=== PATIENT | male | born 1945 | race Two or more races ===

== ENCOUNTER → 2024-10-04 | Outpatient (BNVA) | payer MEDICARE, SELFPAY | END | disposition home or self-care (01) | PROVIDERS: PCP Nurse Practitioner Family; Referring Provider Nurse Practitioner Family; Visit Provider Nurse Practitioner Family | DX: E78.5 Hyperlipidemia, unspecified (principal); D64.9 Anemia, unspecified; I10 Essential (primary) hypertension | CPT/HCPCS: 99213 ==

== ENCOUNTER 2025-05-23 04:38 | Emergency (ER) | payer MEDICARE, MEDICAID, SELFPAY ==
[2025-05-23] VITALS (10 sets, daily range): BP systolic 102–136; BP diastolic 62–79; PULSE 81–120; RESP 17–26; TEMP 37–37.8; O2SAT 93–98; BMI 26.6
--- NOTE | 2025-05-23 05:14 | PD.EDRME ---
Rapid Medical Screening Exam [facility] [place] Arrival date/time: 05/23/25 04:38 79M with history of HTN, CKD, unknown cardic dysrhythmia (w/ pacemaker) presents to ED with 1 day of generalized weakness, BROWN, N/V, ab cramping, and non-bloody diarrhea. Patient denies URI symptoms. Chief Complaint: General Adult/Misc Complain Vital signs: Vital Signs Temperature 98.8 F 05/23/25 04:47 Pulse Rate 87 05/23/25 04:47 Respiratory Rate 17 05/23/25 04:47 Blood Pressure 102/66 05/23/25 04:47 Pulse Oximetry (%) 95 05/23/25 04:47 Oxygen Delivery Method Room Air 05/23/25 04:47
[2025-05-23 06:04] LABS: Collection Type, Urine Clean Catch
[2025-05-23 06:25] LABS: Lactate (Lactic Acid) 2.3 mMol/L (0.4-2.0)
[2025-05-23 06:34] LABS: Basophils # (Auto) 0.1 Thou/mm3 (0.0-0.2); Basophils % (Auto) 0 % (0-2.5); Eosinophils # (Auto) 0.0 Thou/mm3 (0.0-0.5); Eosinophils % (Auto) 0 % (0-10); Hematocrit 35.9 % (41.0-53.0); Hemoglobin 12.4 g/dL (13.5-16.0); Immature Granulocytes Auto 0.11 Thou/mm3 (0.00-0.00); Lymphocytes # (Auto) 1.4 Thou/mm3 (1.0-4.8); Lymphocytes % (Auto) 8 % (10-50); Mean Corpuscular HGB Conc 34.5 g/dl (31.0-37.0); Mean Corpuscular Hemoglobin 30.0 pg (25.0-35.0); Mean Corpuscular Volume 87 fL (80-100); Monocytes # (Auto) 0.5 Thou/mm3 (0.0-0.8); Monocytes % (Auto) 3 % (0-12); Neutrophils # (Auto) 14.4 Thou/mm3 (1.8-7.7); Neutrophils % (Auto) 87 % (37-80); Nucleated Red Blood Cell # 0.00 Thou/mm3 (0.00-0.00); Nucleated Red Blood Cell % 0 /100 WBC (0); Platelet Count 220 Thou/mm3 (140-440); RDW Standard Deviation 40.9 fL (35.1-43.9); Red Blood Count 4.14 Miln/mm3 (4.50-5.90); White Blood Count 16.4 Thou/mm3 (3.8-10.6)
[2025-05-23 07:18] LABS: Alanine Aminotransferase 13 U/L (10-49); Albumin, Serum 4.0 gm/dL (3.4-4.8); Albumin/Globulin Ratio 1.4 (1.2-2.2); Alkaline Phosphatase 100 U/L (46-116); Anion Gap 14 (7-16); Aspartate Amino Transferase 19 U/L (0-34); BUN/Creatinine Ratio 12 Ratio (12-20); Bilirubin,Total 0.7 mg/dL (0.3-1.2); Blood Urea Nitrogen 27 mg/dL (9-23); Calcium 8.9 mg/dL (8.3-10.6); Calcium (Corrected) 8.9 mg/dL (8.5-10.1); Carbon Dioxide 19.6 mMol/L (20.0-31.0); Chloride 105 mMol/L (98-107); Creatinine (Component) 2.2 mg/dL (0.6-1.3); Globulin 2.9 gm/dL (2.3-3.5); Glucose 122 mg/dL (74-106); Lipase 21 U/L (12-53); Osmolality,Calculated 283 (275-295); Potassium 4.0 mMol/L (3.4-5.1); Sodium 139 mMol/L (136-145); Total Protein 6.9 gm/dL (5.7-8.2); eGFR 30 See Note
--- NOTE | 2025-05-23 07:39 | EDNOTE_ITS ---
ED General RME/HPI General Chief complaint: General Adult/Misc Complain Stated complaint: ABD PAIN, N/VD, WEAK,HEADACHE Time Seen by Provider: 05/23/25 07:38 Arrival date/time: 05/23/25 04:38 Limitations: no limitations RME / HPI RME / HPI narrative: 05/23/25 04:38 79M with history of HTN, CKD, unknown cardic dysrhythmia (w/ pacemaker) presents to ED with 1 day of generalized weakness, BROWN, N/V, ab cramping, and non-bloody diarrhea. Patient denies URI symptoms. DR. MARTIN MAIN ED EVALUATION: 79 year old male presents to the Emergency Department with complaints of nausea, vomiting, diarrhea, and body aches onset yesterday morning when he woke up. He also mentions he has not stopped vomiting or having diarrhea and he is dehydrated and now has a headache as well. No cough, dysuria, or other symptoms at this time. PMHx: Hypertension, CKD. Social Hx: No tobacco, alcohol, or substance use. Related Data Home Medications ?Medication ?Instructions ?Recorded ?Confirmed niacin 500 mg tablet 500 mg PO QDAY 08/07/2409/14 verapamil 180 mg 24 hr 180 mg PO QAM 08/07/2410/04 capsule,extended release Previous Rx's ?Medication ?Instructions ?Recorded amiodarone 200 mg tablet 200 mg PO QDAY #30 tabs 08/13 04/05 aspirin 81 mg tablet,delayed 81 mg PO QDAY #90 tabs release levothyroxine 50 mcg capsule 50 mcg PO QDAY #90 caps 1 losartan 100 mg tablet 100 mg PO QDAY #90 tabs 08/13 04/05 omeprazole 20 mg capsule,delayed 20 mg PO QDAY #90 cap s 09/24/24 release ferrous gluconate 324 mg (37.5 mg 324 mg PO QDAY #90 t abs 10/04/24 iron) tablet propranolol 10 mg tablet 10 mg PO QDAY #90 tabs 10/04 sodium bicarbonate 650 mg tablet 650 mg PO QDAY #90 ta bs 10/15/24 Allergies Allergy/AdvReac Type Severity Reaction Status Date / Time No Known Allergies Allergy Verified 05/23/25 04:39 Review of Systems Review of Systems Systems Reviewed: All systems reviewed, normal except as documented Past Medical History Social History SMOKING STATUS: Never smoker SECOND HAND EXPOSURE: No SUBSTANCE USE: does not use ALCOHOL: Never ED Exam General Limitations: Present no limitations General appearance: Present alert and in no apparent distress Head Head exam: Present atraumatic, normocephalic and normal inspection Eye Eye exam: Present normal appearance, PERRL and EOMI ENT ENT exam: Present normal exam, normal oropharynx and mucous membranes dry Neck Neck exam: Present normal inspection, full ROM and trachea midline Chest Chest inspection: Present normal inspection and symmetric chest wall rise Respiratory Respiratory exam: Present normal lung sounds bilaterally Cardiovascular Cardiovascular exam: Present regular rate, normal rhythm and normal heart sounds Abdominal Exam Abdominal exam: Present soft and normal bowel sounds Extremities Exam Extremities exam: Present normal inspection and full ROM Back Exam Back exam: Present normal inspection and full ROM Neurological Exam Neurological exam: Present alert, oriented X3 and CN II-XII intact Psychiatric Psychiatric exam: Present normal affect and normal mood Skin Skin exam: Present warm, dry, intact and normal color Course Quality Measures none Orders Category Date Time Status Bedside COVID-19 Antigen Test NOW Care 05/23/25 05:14 Active Bedside Influenza A&B Antigen Test NOW Care 05/23/25 05:[address] abdomen pelvis wo con Stat Exams 05/23/25 07:43 Completed CXRP [XR chest 1V portable] Stat Exams 05/23/25 07:52 Completed Blood Culture (Lab) Stat Lab 05/23/25 10:13 Received CBC Stat Lab 05/23/25 06:10 Completed CMP [Comprehensive Metabolic Panel] Stat Lab 05/23/25 06:10 Completed COVID-19 Confirmatory PCR Stat Lab 05/23/25 09:09 Ordered Gastrointestinal Cult & GS Stat Lab 05/23/25 Ordered Influenza A & B Rapid Panel Stat Lab 05/23/25 09:08 Ordered Lactate (Lactic Acid) Stat Lab 05/23/25 06:10 Completed Lactic Acid, 3 HR Stat Lab 05/23/25 10:03 Completed Lipase Stat Lab 05/23/25 06:10 Completed PSA [Prostate Specific Antigen] Stat Lab 05/23/25 06:10 Completed Procalcitonin Stat Lab 05/23/25 06:10 Completed Urinalysis, C/S if Indicated Stat Lab 05/23/25 05:23 Completed Levofloxacin/D5w 500 mg Ivpb [Levaquin Ivpb] Med 05/23/25 09:54 Discontinued 500 mg in 100 ml IV X1 Sodium Chloride 0.9% 500 ml [Ns] 500 ml Med 05/23/25 09:55 Discontinued IV 999 mls/hr Vital Signs Vital signs: Vital Signs Temperature 98.8 F 05/23/25 04:47 Pulse Rate 87 05/23/25 04:47 Respiratory Rate 17 05/23/25 04:47 Blood Pressure 102/66 05/23/25 04:47 Pulse Oximetry (%) 95 05/23/25 04:47 Oxygen Delivery Method Room Air 05/23/25 04:47 Discharge Plan Plan Patient Disposition: HOME (Self Care) Patient condition on transfer: Stable Prescriptions/Referrals Prescriptions/Med Rec: No Action verapamil 180 mg capsule,ext rel. pellets 24 hr 180 mg PO QAM niacin 500 mg tablet 500 mg PO QDAY amiodarone 200 mg tablet 200 mg PO QDAY Qty: 30 0RF aspirin 81 mg tablet,delayed release (DR/EC) 81 mg PO QDAY Qty: 90 0RF levothyroxine 50 mcg capsule 50 mcg PO QDAY Qty: 90 0RF losartan 100 mg tablet 100 mg PO QDAY Qty: 90 0RF omeprazole 20 mg capsule,delayed release(DR/EC) 20 mg PO QDAY Qty: 90 0RF propranolol 10 mg tablet 10 mg PO QDAY Qty: 90 0RF ferrous gluconate 324 mg (37.5 mg iron) tablet 324 mg PO QDAY Qty: 90 0RF sodium bicarbonate 650 mg tablet 650 mg PO QDAY Qty: 90 0RF Referrals: Trevor Jones PA-C [Primary Care Provider] - In 1 week Problem List Clinical Impression: Gastroenteritis, Sepsis, Prostatitis Patient/Caregiver Discharge Instructions Discharge Activity: resume usual activities Education Materials: Sepsis, ED Gastroenteritis, Noninfectious, ED Prostatitis Print Language: Indonesian Stand Alone Forms: Jessica Award Info., Patient Portal Info Letter MDM Narrative [facility] hospital course: I, Chrissy Gates, am scribing for and in the presence of Dr. Taylor. Patient here for nausea, vomiting, diarrhea, body aches, and a headache. Likely gastroenteritis, sepsis, OBED, and dehydration. Plan to order labs, CT, IV fluids; no antibiotics for now. Also will order a sepsis work-up including CXR and COVID and flu swabs. Levaquin for 10 days, Zofran for nausea, Tylenol for fever, and follow up with PCP. Diagnoses with gastroenteritis, sepsis, and prostatitis. Clinical Information Provided by patient Medical Records Reviewed [facility] Meds/Rx Considered, not Ordered None Labs/Rad/Tests considered, not Ordered None Chronic Illness/Social Conditions Add or document further as needed: PMHx: Hypertension, CKD. Social Hx: No tobacco, alcohol, or substance use. EKG EKG not done Lab Interpretation Labs: see narrative above Imaging Radiology reports / interpretation(s): Procedure(s): CT abdomen pelvis wo [facility] Accession Number(s): [id number] cc: Lenny Taylor MD; Suhail Diaz MD; Trevor Jones PA-C~ Examination: CT abdomen and pelvis without contrast. Coronal 3-D reconstructions. Sagittal 2-D reconstructions. Date and time of exam:May 23, 2025 0814 hours INDICATIONS: Sepsis alert today with generalized abdominal pain and fevers CTDI: vol (mGy): 6.98 DLP: (mGycm): 381 Technique: Axial images of the abdomen have been obtained, 3 mm slice thickness Intravenous contrast material has not been administered. Low dose protocols were performed. One or more of the following dose reduction techniques were used; automated exposure control, adjustment of the mA and/or KV according to patient size, use of iterative reconstruction technique. Findings: No focal liver or splenic lesions Absent gallbladder No pancreatic or adrenal mass. Perinephric stranding, 14 mm posterior right renal cyst No renal or ureteral calculi, no hydronephrosis Aortic calcification no aneurysmal dilatation Minimal pericecal inflammatory change The entire colon shows wall thickening and inflammatory change Appendix is not diagnostically visualized No diverticulitis Contracted urinary bladder No significant prostatomegaly Advanced disc narrowing L5-S1 2002 IMPRESSION: Diffuse nonspecific colitis pattern, differential would include ulcerative colitis, Crohn's disease Dictated By: Suhail Diaz MD Procedure(s): XR chest 1V portable Accession Number(s): [id number] cc: Lenny Taylor MD; Suahil Diaz MD; Trevor Jones PA-C~ Examination: AP chest single view TECHNIQUE: AP portable upright chest single view Date and time: May 23, 2025 0749 hours INDICATIONS: Fever chest pain beginning today FINDINGS: Mildly large cardiac contour Moderate vascular congestion Suspicious for pneumonia right base IMPRESSION: Suspicious for early pneumonia right base Dictated By: Suhail Diaz MD Medication Administration(s) Medication Administration History Discontinued Medications Sodium Chloride (Ns) 500 mls @ 999 mls/hr IV .Q31M ONE Stop: 05/23/25 10:25 Last Admin: 05/23/25 10:39 Dose: 999 mls/hr Documented By: TAM Levofloxacin/Dextrose (Levaquin Ivpb) 500 mg in 100 mls @ 100 mls/hr IV X1 ONE Stop: 05/23/25 10:53 Last Admin: 05/23/25 10:35 Dose: 100 mls/hr Documented By: TAM Diagnosis Differential diagnosis: gastroenteritis, sepsis, OBED, and dehydration Most likely dx, and/or detailed dx discussion: Gastroenteritis Sepsis Prostatitis Dispositon Disposition: Discharge Home
--- NOTE | 2025-05-23 07:43 | XR_ITS ---
Examination: CT abdomen and pelvis without contrast. Coronal 3-D reconstructions. Sagittal 2-D reconstructions. Date and time of exam:May 23, 2025 0814 hours INDICATIONS: Sepsis alert today with generalized abdominal pain and fevers CTDI: vol (mGy): 6.98 DLP: (mGycm): 381 Technique: Axial images of the abdomen have been obtained, 3 mm slice thickness Intravenous contrast material has not been administered. Low dose protocols were performed. One or more of the following dose reduction techniques were used; automated exposure control, adjustment of the mA and/or KV according to patient size, use of iterative reconstruction technique. Findings: No focal liver or splenic lesions Absent gallbladder No pancreatic or adrenal mass. Perinephric stranding, 14 mm posterior right renal cyst No renal or ureteral calculi, no hydronephrosis Aortic calcification no aneurysmal dilatation Minimal pericecal inflammatory change The entire colon shows wall thickening and inflammatory change Appendix is not diagnostically visualized No diverticulitis Contracted urinary bladder No significant prostatomegaly Advanced disc narrowing L5-S1 2002 IMPRESSION: Diffuse nonspecific colitis pattern, differential would include ulcerative colitis, Crohn's disease
[2025-05-23 07:51] LABS: Procalcitonin 64.65 ng/ml (0.0-0.49)
--- NOTE | 2025-05-23 07:52 | XR_ITS ---
Examination: AP chest single view TECHNIQUE: AP portable upright chest single view Date and time: May 23, 2025 0749 hours INDICATIONS: Fever chest pain beginning today FINDINGS: Mildly large cardiac contour Moderate vascular congestion Suspicious for pneumonia right base IMPRESSION: Suspicious for early pneumonia right base
[2025-05-23 08:07] LABS: Bilirubin,Urine Negative (Negative); Blood,Urine Negative (Negative); Clarity,Urine Turbid (Clear/Hazy); Color,Urine Yellow (Lt Yel-Yel); Culture Indicated,Urine Not Indicated; Glucose, Urine Negative (Negative); Ketones,Urine Negative (Negative); Leukocyte Esterase,Urine Negative (Negative); Nitrite,Urine Negative (Negative); PH,Urine 5.5 (5.0-7.0); Protein,Urine 1+ (Neg - Trace); RBC,Urine 1 /hpf (0-3); Specific Gravity,Urine 1.024 (1.001-1.035); Squamous Epithelial Cell,Urine < 1 /hpf (0-5); Urobilinogen,Urine Negative mg/dL (0.0-1.0); WBC,Urine 1 /hpf (0-5)
[2025-05-23 08:30] LABS: Prostate Specific Antigen 8.30 ng/mL (0-4.00)
[2025-05-23 09:23] LABS: Reflex Lactate? Y
[2025-05-23 10:17] LABS: Lactic Acid, 3 HR 2.0 mMol/L (0.4-2.0)
[2025-05-23] MEDS: LEVOFLOXACIN/D5W 500 MG IVPB 500 MG/100 ML BAG 100 MG IV (10:35)
[2025-05-23] MEDS: SODIUM CHLORIDE 0.9% 500 ML 500 ML 999 ML IV (10:39)
== END 2025-05-23 12:00 | disposition home or self-care (01) ==
PROVIDERS: Physician Assistant; Emergency Provider Emergency Medicine; PCP Physician Assistant
DX: K52.9 Noninfective gastroenteritis and colitis, unspecified (principal); N41.9 Inflammatory disease of prostate, unspecified; R50.9 Fever, unspecified; R07.9 Chest pain, unspecified
CPT/HCPCS: 36415; 71045; 74176; 80053; 81001; 83605; 83690; 84145; 84153; 85025; 87040; 87070; 87205; 87400; 87502; 87635; 87811; 96365; 99285; J1956; J7999

== ENCOUNTER 2025-05-24 19:52 | Inpatient (IN) | payer MEDICARE, SELFPAY ==
[2025-05-24 20:40] VITALS: BP 92/60; PULSE 67; RESP 18; TEMP 37.1; O2SAT 95
--- NOTE | 2025-05-24 21:23 | XR_ITS ---
Examination: AP chest single view Technique an AP portable semiupright chest single view Date and time: May 24, 20252124 hours INDICATIONS: Sepsis alert chest pain FINDINGS: Mild prominence of ventricle Cardiac leads satisfactory position. No pneumonia or pulmonary edema. Intact osseous structures IMPRESSION: No pneumonia identified
--- NOTE | 2025-05-24 21:23 | EKG_ITS ---
[facility] Test Date: 2025-05-24 Pat Name: YOU VARGAS Department: Room: - Gender: Male Vault Attendant: : 1945 Requested By: Denton Coe Order Number: [id number] Reading MD: Denton Coe Measurements Intervals Diller Rate: 66 P: 77 CO: 155 QRS: -47 QRSD: 155 T: -14 QT: 472 QTc: 495 Interpretive Statements ELECTRONIC ATRIAL PACEMAKER ELECTRONIC VENTRICULAR PACEMAKER -- CONTOUR ANALYSIS BASED ON INTRINSIC RHYTHM LEFT AXIS DEVIATION [QRS AXIS < -30] RIGHT BUNDLE BRANCH BLOCK [120+ ms QRS DURATION, UPRIGHT V1, 40+ ms S IN I/aVL/V4/V5/V6] MODERATE T-WAVE ABNORMALITY, CONSIDER ANTEROLATERAL ISCHEMIA [-0.1+ mV T-WAVE IN V3-V6] No previous ECG available for comparison /store/S0/[id number]/ecg/[id number].pdf
--- NOTE | 2025-05-24 21:25 | EDNOTE_ITS ---
<Statement entered by Kathy Fraga MD - 05/25/25 21:21> As co-signing physician, I was present and available for consult prn. I concur with the plan and care as documented by the midlevel provider. ED Abdominal Pain RME/HPI General Chief Complaint: Abdominal Pain Stated complaint: ABD PAIN Time seen by provider: 05/24/25 21:03 Arrival date/time: 05/24/25 19:52 RME / HPI RME / HPI narrative: 79-year-old male patient with significant history of hypertension, BPH, hypothyroidism, was brought in by family for evaluation regarding worsening of abdominal pain. Patient's been having abdominal pain for the last 3 days, described as dull ache, severity moderate associated with worsening generalized body weakness, difficulty ambulating due to weakness, vomiting, nausea, and cannot take anything down due to vomiting. Patient was seen here yesterday workup was done and showed colitis prostatitis and was discharged home on Levaquin. According to the family patient cannot take anything down due to worsening abdominal pain. Yesterday patient had a fever today no fever noted. Related Data Home Medications ?Medication ?Instructions ?Recorded ?Confirmed niacin 500 mg tablet 500 mg PO QDAY 08/07/2409/14 verapamil 180 mg 24 hr 180 mg PO QAM 08/07/2410/04 capsule,extended release Previous Rx's ?Medication ?Instructions ?Recorded amiodarone 200 mg tablet 200 mg PO QDAY #30 tabs 08/13 04/05 aspirin 81 mg tablet,delayed 81 mg PO QDAY #90 tabs release levothyroxine 50 mcg capsule 50 mcg PO QDAY #90 caps 1 losartan 100 mg tablet 100 mg PO QDAY #90 tabs 08/13 04/05 omeprazole 20 mg capsule,delayed 20 mg PO QDAY #90 cap s 09/24/24 release ferrous gluconate 324 mg (37.5 mg 324 mg PO QDAY #90 t abs 10/04/24 iron) tablet propranolol 10 mg tablet 10 mg PO QDAY #90 tabs 10/04 sodium bicarbonate 650 mg tablet 650 mg PO QDAY #90 ta bs 10/15/24 levofloxacin 500 mg tablet 500 mg PO Q24H 10 days #10 tabs 05/23/25 ondansetron 4 mg disintegrating 4 mg PO Q8H 4 days #12 tabs 05/23/25 tablet Allergies Allergy/AdvReac Type Severity Reaction Status Date / Time No Known Allergies Allergy Verified 05/24/25 19:54 Review of Systems Review of Systems Narrative Review of Systems: Review of system reviewed and within normal limits except mentioned in HPI ED Exam Narrative Physical exam: VITAL SIGNS: Reviewed. GENERAL APPEARANCE: Alert and interactive, follows commands, no acute distress, HEAD AND FACE: Non-traumatic. ENT: PERRL, pink conjunctivitis, eyelid no trauma, Mucous membrane dry oral mucosa NECK: Supple, nontender, no nuchal rigidity. CHEST: No tenderness, no crepitus, no paradoxical movement, no retractions. LUNGS: Clear, well ventilated, symmetric, no rales, no wheezing, no ronchi, no stridor, good breath sounds bilaterally. HEART: Regular rate, regular rhythm, no murmur, no gallops. ABDOMEN: Soft, positive bowel sounds, nondistended, no guarding, nontender, no rebound, no masses, RECTAL: Deferred. GENITAL: Deferred. NEUROLOGICAL: Gross motor function intact sensory function intact, Appropriate for age. MUSCULOSKELETAL: low back nontender, full range of motion. EXTREMITIES: Nontender, full range of motion. SKIN: Color pink, dry, no rash, no lacerations, no abrasions, no contusions. LYMPHATICS: Deferred. Course Quality Measures none Orders Category Date Time Status Welding Rod [employer]ater STAT Care 05/24/25 21:23 Active Continuous Pulse Oximetry STAT Care 05/24/25 21:23 Completed EKG (ED ONLY) *Do not use* NOW Care 05/24/25 21:23 Completed In and Out Catheter X1PRN Care 05/24/25 21:23 Active Insert IV NOW Care 05/24/25 21:23 Active NPO STAT Care 05/24/25 21:23 Active Strict Intake and Output Routine Care 05/24/25 21:23 Ordered Consult to Gastroenterology Stat Cons 05/24/25 21:46 Ordered EKG (ED Only) Stat Exams 05/24/25 21:23 Draft XR chest 1V SEPSIS PROTOCOL Stat Exams 05/24/25 21:23 Completed B-Type Natriuretic Peptide Stat Lab 05/24/25 21:36 Completed Blood Culture (Lab) Stat Lab 05/24/25 21:42 Received CBC Stat Lab 05/24/25 21:36 Completed Comprehensive Metabolic Panel Stat Lab 05/24/25 21:36 Results LDH (Lactate Dehydrogenase) Stat Lab 05/24/25 21:36 Results Lactate (Lactic Acid) Stat Lab 05/24/25 21:36 Results Lipase Stat Lab 05/24/25 21:36 Results Magnesium Stat Lab 05/24/25 21:36 Results Partial Thromboplastin Time Stat Lab 05/24/25 21:36 Completed Phosphorous Stat Lab 05/24/25 21:36 Results Procalcitonin Stat Lab 05/24/25 21:36 Results Prothrombin Time with INR Stat Lab 05/24/25 21:36 Completed Troponin I Stat Lab 05/24/25 21:36 Results Urinalysis Stat Lab 05/24/25 22:32 Completed Urine Culture Stat Lab 05/24/25 21:42 Received CIPROFLOXACIN/D5w 400 MG IVPB [Cipro Ivpb] Med 05/24/25 22:03 Discontinued 400 mg in 200 ml IV X1 Ringers Lactated 1000 ml [Lactated Ringers] 1,000 ml Med 05/24/25 21:30 Discontinued IV 999 mls/hr Ringers Lactated 1000 ml [Lactated Ringers] 1,000 ml Med 05/24/25 22:28 Discontinued IV 999 mls/hr metroNIDAZOLE/NS 500 MG IVPB [Flagyl 500 mg IV] Med 05/24/25 22:03 Dis continued 500 mg in 100 ml IV X1 Oxygen Delivery NOW RT 05/24/25 21:23 Active Vital Signs Vital signs: Vital Signs Temperature 98.7 F 05/24/25 20:40 Pulse Rate 67 05/24/25 20:40 Respiratory Rate 18 05/24/25 20:40 Blood Pressure 92/60 05/24/25 20:40 Pulse Oximetry (%) 95 05/24/25 20:40 Oxygen Delivery Method Room Air 05/24/25 20:40 Abdominal Pain MDM MDM Narrative MDM Narrative:: 79-year-old male patient with significant history of hypertension, BPH, hypothyroidism, was brought in by family for evaluation regarding worsening of abdominal pain. Patient's been having abdominal pain for the last 3 days, described as dull ache, severity moderate associated with worsening generalized body weakness, difficulty ambulating due to weakness, vomiting, nausea, and cannot take anything down due to vomiting. Patient was seen here yesterday workup was done and showed colitis prostatitis and was discharged home on Levaquin. According to the family patient cannot take anything down due to worsening abdominal pain. Yesterday patient had a fever today no fever noted. Patient's laboratory workup today significant for worsening creatinine, 3.1 as compared to 2.2 yesterday. Pro-Ac is elevated, CBC showed leukocytosis. Lactic acid 2.4 urinalysis no UTI chest x-ray came back unremarkable. I did not repeat the CT scan of the abdomen and pelvis today. Patient received Flagyl IV and Cipro IV. Was also given 2 L of IV fluids. I consulted Dr. Nuñez, GI specialist on-call, discussed the case, and will see the patient in the floor. Discussed with hospitalist who admitted the patient. Patient data External records reviewed:: None Clinical information provided by:: patient Social determinants that could affect healthcare access:: none Patient has the following chronic illnesses:: Hypertension How is presenting disease/condition affected by chronic disease/condition?: exacerbated by Evaluation data The following diagnostics were reviewed and interpreted by me:: lab results, radiology exam(s) and EKG tracing(s) Lab and/or radiology exams considered but not ordered:: None Interpretation Summary: EKG showed paced rhythm, ventricular to 66 bpm, no ST segment elevation or depression noted. Medications / Prescriptions Medications or Prescriptions considered but not ordered:: None Medication administrations:: Medication Administration History Discontinued Medications Lactated Ringer's (Lactated Ringers) 1,000 mls @ 999 mls/hr IV .Q1H1M ONE Stop: 05/24/25 22:30 Last Infusion: 05/24/25 22:28 Dose: Infused Documented By: Admin: 05/24/25 21:46 Dose: 999 mls/hr Documented By: ROSS Metronidazole (Flagyl 500 Mg Iv) 500 mg in 100 mls @ 100 mls/hr IV X1 ONE Stop: 05/24/25 23:02 Last Infusion: 05/24/25 23:40 Dose: Infused Documented By: Admin: 05/24/25 22:39 Dose: 100 mls/hr Documented By: ROSS Ciprofloxacin/Dextrose (Cipro Ivpb) 400 mg in 200 mls @ 200 mls/hr IV X1 ONE Stop: 05/24/25 23:02 Last Admin: 05/24/25 23:35 Dose: 200 mls/hr Documented By: MARCELL Lactated Ringer's (Lactated Ringers) 1,000 mls @ 999 mls/hr IV .Q1H1M ONE Stop: 05/24/25 23:28 Last Admin: 05/24/25 22:34 Dose: 999 mls/hr Documented By: ROSS IV fluids 2 L IV Cipro IV Flagyl Consultations Consultation(s) initiated? (list below): No Diagnosis Differential diagnosis abdominal pain: abdominal pain and other (Dehydration, OBED, colitis) Most likely diagnosis given after review of the tests above:: Colitis, OBED Admission Indicated Admission indicated?: indicated Admission Request Was there a request for admission?: Yes Admission Attestation Admission request attestation: Discussed case with Hospitalist service regarding admission. Discussed patients ED course, exam findings, labs, and radiology results. The Hospitalist [agrees, to accept the patient for admission. Disposition Plan Disposition Plan: Admit Discharge Plan Plan Patient Disposition: Admit Acute Care w/in Hospital Discharge Disposition comment: Stable Prescriptions/Referrals Prescriptions/Med Rec: No Action verapamil 180 mg capsule,ext rel. pellets 24 hr 180 mg PO QAM niacin 500 mg tablet 500 mg PO QDAY amiodarone 200 mg tablet 200 mg PO QDAY Qty: 30 0RF aspirin 81 mg tablet,delayed release (DR/EC) 81 mg PO QDAY Qty: 90 0RF levothyroxine 50 mcg capsule 50 mcg PO QDAY Qty: 90 0RF losartan 100 mg tablet 100 mg PO QDAY Qty: 90 0RF omeprazole 20 mg capsule,delayed release(DR/EC) 20 mg PO QDAY Qty: 90 0RF propranolol 10 mg tablet 10 mg PO QDAY Qty: 90 0RF ferrous gluconate 324 mg (37.5 mg iron) tablet 324 mg PO QDAY Qty: 90 0RF sodium bicarbonate 650 mg tablet 650 mg PO QDAY Qty: 90 0RF levofloxacin 500 mg tablet 500 mg PO Q24H MDD start the nedication tomorrow 10 Days Qty: 10 0RF ondansetron 4 mg tablet,disintegrating 4 mg PO Q8H 4 Days Qty: 12 0RF Referrals: Trevor Jones PA-C [Primary Care Provider] - In 1 week Problem List Clinical Impression: Colitis, OBED (acute kidney injury) Patient/Caregiver Discharge Instructions Print Language: Hungarian Stand Alone Forms: Jessica Award Info., Patient Portal Info Letter
[2025-05-24 21:30] VITALS: PULSE 65
[2025-05-24 21:31] VITALS: PULSE 63; RESP 19; RESP 99
[2025-05-24] MEDS: RINGERS LACTATED 1000 ML 1,000 ML 999 ML IV ×2 (21:46→22:34)
[2025-05-24 21:49] VITALS: BP 96/58
[2025-05-24 21:55] LABS: Lactate (Lactic Acid) 2.4 mMol/L (0.4-2.0)
[2025-05-24 22:12] LABS: Basophils # (Auto) 0.0 Thou/mm3 (0.0-0.2); Basophils % (Auto) 0 % (0-2.5); Eosinophils # (Auto) 0.0 Thou/mm3 (0.0-0.5); Eosinophils % (Auto) 0 % (0-10); Hematocrit 40.7 % (41.0-53.0); Hemoglobin 13.9 g/dL (13.5-16.0); Immature Granulocytes Auto 0.25 Thou/mm3 (0.00-0.00); Lymphocytes # (Auto) 1.9 Thou/mm3 (1.0-4.8); Lymphocytes % (Auto) 14 % (10-50); Mean Corpuscular HGB Conc 34.2 g/dl (31.0-37.0); Mean Corpuscular Hemoglobin 30.0 pg (25.0-35.0); Mean Corpuscular Volume 88 fL (80-100); Monocytes # (Auto) 0.9 Thou/mm3 (0.0-0.8); Monocytes % (Auto) 7 % (0-12); Neutrophils # (Auto) 10.7 Thou/mm3 (1.8-7.7); Neutrophils % (Auto) 78 % (37-80); Nucleated Red Blood Cell # 0.00 Thou/mm3 (0.00-0.00); Nucleated Red Blood Cell % 0 /100 WBC (0); Platelet Count 203 Thou/mm3 (140-440); RDW Standard Deviation 43.8 fL (35.1-43.9); Red Blood Count 4.63 Miln/mm3 (4.50-5.90); White Blood Count 13.7 Thou/mm3 (3.8-10.6)
[2025-05-24 22:22] LABS: INR 1.2 (0.9-1.3); Partial Thromboplastin Time 38.8 Seconds (22.0-36.0); Prothrombin Time 13.2 Seconds (9.0-12.2)
[2025-05-24] MEDS: metroNIDAZOLE/NS 500 MG IVPB 500 MG/100 ML BAG 100 MG IV (22:39)
[2025-05-24 22:44] LABS: Collection Type, Urine Clean Catch
[2025-05-24 22:55] LABS: Alanine Aminotransferase 25 U/L (10-49); Albumin, Serum 3.9 gm/dL (3.4-4.8); Albumin/Globulin Ratio 1.3 (1.2-2.2); Alkaline Phosphatase 85 U/L (46-116); Anion Gap 11 (7-16); Aspartate Amino Transferase 34 U/L (0-34); BUN/Creatinine Ratio 13 Ratio (12-20); Bilirubin,Total 0.5 mg/dL (0.3-1.2); Blood Urea Nitrogen 39 mg/dL (9-23); Calcium 9.6 mg/dL (8.3-10.6); Calcium (Corrected) 9.7 mg/dL (8.5-10.1); Carbon Dioxide 19.3 mMol/L (20.0-31.0); Chloride 106 mMol/L (98-107); Creatinine (Component) 3.1 mg/dL (0.6-1.3); Globulin 2.9 gm/dL (2.3-3.5); Glucose 133 mg/dL (74-106); Lipase 22 U/L (12-53); Magnesium 2.2 mg/dL (1.6-2.6); Osmolality,Calculated 283 (275-295); Phosphorous 4.4 mg/dL (2.4-5.1); Potassium 4.3 mMol/L (3.4-5.1); Procalcitonin 43.37 ng/ml (0.0-0.49); Sodium 136 mMol/L (136-145); Total Protein 6.8 gm/dL (5.7-8.2); Troponin I < 0.020 ng/mL (0.0-0.045); eGFR 20 See Note
[2025-05-24 23:04] LABS: B-Type Natriuretic Peptide 110 pg/mL (0-100)
[2025-05-24 23:04] LABS: Bilirubin,Urine Negative (Negative); Blood,Urine Negative (Negative); Clarity,Urine Turbid (Clear/Hazy); Color,Urine Yellow (Lt Yel-Yel); Glucose, Urine Negative (Negative); Ketones,Urine Negative (Negative); Leukocyte Esterase,Urine Negative (Negative); Nitrite,Urine Negative (Negative); PH,Urine 5.5 (5.0-7.0); Protein,Urine 1+ (Neg - Trace); RBC,Urine 6 /hpf (0-3); Specific Gravity,Urine 1.025 (1.001-1.035); Squamous Epithelial Cell,Urine 1 /hpf (0-5); Urobilinogen,Urine Negative mg/dL (0.0-1.0); WBC,Urine 6 /hpf (0-5)
[2025-05-24] MEDS: CIPROFLOXACIN/D5w 400 MG IVPB 400 MG/200 ML BAG 200 MG IV (23:35)
[2025-05-24 23:38] VITALS: BP 94/60; PULSE 66; RESP 18; TEMP 36.9; O2SAT 96
[2025-05-25] VITALS (11 sets, daily range): BP systolic 89–131; BP diastolic 59–87; PULSE 65–90; RESP 16–18; TEMP 36.1–37.3; O2SAT 95–98
[2025-05-25 00:05] LABS: LDH (Lactate Dehydrogenase) 246 U/L (120-246)
[2025-05-25 00:43] LABS: Reflex Lactate? Y
--- NOTE | 2025-05-25 00:50 | XR_ITS ---
Examination: Retroperitoneal ultrasound, complete Technique: Multiple high resolution grayscale images of the retroperitoneum obtained, including kidneys and bladder. Exam date and time:May 25, 2025 0106 hours INDICATIONS: Abdominal pain 2 days, acute renal insufficiency on laboratory examination today FINDINGS: Right kidney 9.3 cm in 4 to 1.6 cm 17 mm lateral cyst Left kidney 9.5 cm renal cortex 1.5 cm Moderate renal parenchymal scar formation No hydronephrosis No bladder mass or bladder calculi Possible solid mass anterior to the right kidney 5.4 cm IMPRESSION: Moderate bilateral renal parenchymal scar formation Recommend CT scan abdomen and pelvis follow-up to exclude solid mass anterior to the right kidney
--- NOTE | 2025-05-25 01:01 | PD.RESHP ---
Documentation for date of: 05/25/25 [facility] History of Present Illness History of present illness: Luis Fernando Rubio is a 79-year-old M with a PMH of hypertension, hyperlipidemia, hypothyroidism, prediabetes, pacemaker for an unspecified cardiac arrhythmia for which the patient is on amiodarone, and CKD, and a renal cyst who presents today with worsening abdominal pain, nausea, and vomiting for 3 days. Patient was previously seen yesterday for a similar complaint where it was explained by family that he had not been eating or walking around nor taking in food or fluids. At the time, labs showed a creatinine of 2.2 and he was sent home with oral antibiotics (Levaquin). Today, he was brought in by family again where they reported his symptoms worsening. According to [id number], patient's current vomiting is nonbloody and nonbilious, and she also endorses patient having diarrhea with 3 episodes over the last 24 hours which she describes as watery. Per [id number], the patient has not eaten any out of the ordinary foods, and no one else in the family is sick and she denies any recent travel. In the ED, vitals showed: BP 92/60 HR 67 RR 18 Temp 98.7 SpO2 95% on room air ED Course: CBC showed high WBC 13.7 with neutrophilic predominance. Coagulation panel showed slightly high PT 13.2 and slightly high APTT 38.8. CMP showed high BUN 39, high creatinine 3.1, low eGFR 20, high glucose (133), slightly high lactic acid 2.4, slightly high BNP 110, high procalcitonin 43.37. UA was turbid and showed 1+ protein, high RBC 6, high WBC 6, but was negative for nitrites and LE. Patient was given 2L of IV LR boluses, IV Flagyl 500 mg x1, and IV ciprofloxacin 400 mg x1. On Imaging: CTAP from 05/23/2025 showed a diffuse nonspecific colitis pattern that could possibly be significant for ulcerative colitis or Crohn's disease. CXR from 05/24/2025 showed no signs of pneumonia. EKG showed left axis deviation, RBBB, and moderate T-wave abnormality that could possibly indicate anterolateral ischemia (machine interpretation). QTc was also slightly prolonged at 495. Renal ultrasound has been ordered but has not yet resulted at the moment of writing this note. Patient was admitted for the work-up and management of possible colitis, pyelonephritis and OBED on CKD. Gastroenterology consult has been ordered and Dr. Nuñez has agreed to see the patient tomorrow. Review of Systems Review of Systems Narrative Review of Systems: General: Endorses fever and weakness. Denies unexpected weight loss, night sweats, and chills HEENT: Denies congestion or sore throat Heart: Denies chest pain or palpitations Lungs: Denies shortness of breath or cough Abdomen: Endorses abdominal pain, nausea, vomiting, diarrhea, and appetite loss. Denies constipation or blood in stool Genitourinary: Denies frequency, urgency, dysuria, or hematuria Neurology: Denies any changes in vision, weakness or difficulty speaking Review of systems otherwise negative except what is mentioned above. Past Medical History Past Medical History CARDIAC: Positive Cardiac Arrhythmia and Hypercholesterolemia; Negative Congestive Heart Failure RESPIRATORY: Negative Chronic Obstructive Pulmonary Disease (COPD) GASTROINTESTINAL: Positive Gall Bladder Disease and Colitis GENITOURINARY: Negative Renal Disease ENDOCRINE: Positive Hypothyroidism; Negative Diabetes Mellitus Type 1 or Diabetes Mellitus Type 2 PSYCHO/SOCIAL: Positive Depression Surgical History SURGICAL: Positive Pacemaker Social History SMOKING STATUS: Never smoker SECOND HAND EXPOSURE: No SUBSTANCE USE: does not use Past Medical History Comments PMH COMMENT: PMH: renal cyst, CKD PSH: pacemaker, cholecystectomy Medications: Levaquin, omeprazole 20 mg qD, verapamil 180 mg qD, levothyroxine 88 mcg qD, Zofran 4 mg q8HR, sodium bicarbonate 650 mg qD, amiodarone 100 mg qD, losartan 100 mg qD, ferrous gluconate 324 mg qD Allergies: none FH: both mother and father have HTN SH: lives with and daughter in a house in [place], no drinking or smoking history Exam Vital Signs Temp Pulse Resp BP Pulse Ox O2 Del Method 98.4 F 66 18 94/60 96 Room Air 05/24/25 23:38 05/24/25 23:38 05/24/25 23:38 05/24/25 23:38 05/24/25 23:38 05/24/25 23:38 Narrative Exam Physical Exam: General: Alert, no acute distress. Skin: Warm, dry, intact, no obvious rash. Head: Normocephalic, atraumatic. Eye: Normal conjunctiva, PERRL. Throat: Oral mucosa moist. No obvious lesions in oropharynx. Cardiovascular: Regular rate and rhythm, no murmur, +S1/S2. Respiratory: Lungs are clear to auscultation, respirations unlabored, no crackles, no wheezing. Gastrointestinal: RLQ abdominal tenderness to palpation. Right costovertebral tenderness. Guarding. Soft, non-distended. No rebound tenderness. Extremities: No edema, no cyanosis, no clubbing. 2+ radial pulse bilaterally, 2+ posterior tibial pulse bilaterally. Neuro: No focal deficits observed. Conversant, moving all extremities. No overt cerebellar signs/incoordination. Psychiatric: Cooperative, appropriate affect. Results: Labs 05/24/25 21:36 05/24/25 21:36 Labs: Short CBC 05/24/25 Range/Units 21:36 WBC 13.7 H (3.8-10.6) Thou/mm3 Hgb 13.9 (13.5-16.0) g/dL Hct 40.7 L (41.0-53.0) % Plt Count 203 (140-440) Thou/mm3 BMP 05/24/25 21:36 Sodium 136 Potassium 4.3 Chloride 106 Carbon Dioxide 19.3 L BUN 39 H Creatinine 3.1 H D Glucose 133 H Calcium 9.6 Cardiac Enzymes 05/24/25 Range/Units 21:36 Troponin I < 0.020 (0.0-0.045) ng/mL Liver Function 05/24/25 Range/Units 21:36 Total Bilirubin 0.5 (0.3-1.2) mg/dL AST 34 (0-34) U/L ALT 25 (10-49) U/L Alkaline Phosphatase 85 (46-116) U/L Albumin 3.9 (3.4-4.8) gm/dL Urine 05/24/25 Range/Units 22:32 Urine Color Yellow (Lt Yel-Yel) Urine Clarity Turbid A (Clear/Hazy) Urine pH 5.5 (5.0-7.0) Ur Specific [place] 1.025 (1.001-1.035) Urine Protein 1+ A (Neg - Trace) Urine Glucose (UA) Negative (Negative) Quality Measures Quality Measures none Advance care planning discussed with:: patient and child Medications Home Medications and Allergies Home Medications ?Medication ?Instructions ?Recorded ?Confirmed ?Type niacin 500 mg tablet 500 mg PO QDAY 08/07/24 10/04/24 History verapamil 180 mg 24 hr 180 mg PO QAM 08/07/24 10/04/24 History capsule,extended release Allergies Allergy/AdvReac Type Severity Reaction Status Date / Time No Known Allergies Allergy Verified 05/24/25 19:54 Visit Medications Acetaminophen (Acetaminophen 325 Mg Tablet) 650 mg PO Q6H PRN PRN Reason: PAIN SCALE 1-3 (mild Stop: 06/24/25 00:44 Dextrose (Dextrose 50%-Water Inj 50 Ml Syringe) 25 ml IV Q15MIN PRN PRN Reason: BG 50-70 responsive npo pt Stop: 06/24/25 00:49 Dextrose (Dextrose 50%-Water Inj 50 Ml Syringe) 50 ml IV Q15MIN PRN PRN Reason: BG <50 OR BG <70 & pt unresponsive Stop: 06/24/25 00:49 Glucagon (Glucagon Inj 1 Mg Vial) 1 mg IM Q15MIN PRN PRN Reason: BG <70, and no IV access Heparin Sodium (Porcine) (Heparin Sod Inj 5000 Unit/Ml Vial) 5,000 unit SC Q12HR ERIKA Stop: 06/08/25 08:59 Lactated Ringer's (Lactated Ringers) 1,000 mls @ 75 mls/hr IV .[id number] ERIKA Stop: 05/25/25 14:04 Ceftriaxone Sodium/Dextrose (Rocephin/D5w 1gm Iv Premix) 1 gm in 50 mls @ 100 mls/hr IV QDAY ERIKA Stop: 06/01/25 00:54 Metronidazole (Flagyl 500 Mg Iv) 500 mg in 100 mls @ 200 mls/hr IV Q8HR ERIKA Stop: 06/01/25 06:29 Insulin Human Lispro (Insulin Lispro (Admelog) 1 Unit/0.01 Ml Unit) 0 unit SC [facility]; Protocol Stop: 06/24/25 07:29 Ondansetron HCl (Ondansetron Inj 2 Mg/Ml Inj 2 Ml) 4 mg IVP Q6H PRN; Protocol PRN Reason: NAUSEA OR VOMITING Stop: 06/24/25 00:44 Discontinued Medications Lactated Ringer's (Lactated Ringers) 1,000 mls @ 999 mls/hr IV .Q1H1M ONE Stop: 05/24/25 22:30 Last Infusion: 05/24/25 22:28 Dose: Infused Metronidazole (Flagyl 500 Mg Iv) 500 mg in 100 mls @ 100 mls/hr IV X1 ONE Stop: 05/24/25 23:02 Last Infusion: 05/24/25 23:40 Dose: Infused Ciprofloxacin/Dextrose (Cipro Ivpb) 400 mg in 200 mls @ 200 mls/hr IV X1 ONE Stop: 05/24/25 23:02 Last Admin: 05/24/25 23:35 Dose: 200 mls/hr Lactated Ringer's (Lactated Ringers) 1,000 mls @ 999 mls/hr IV .Q1H1M ONE Stop: 05/24/25 23:28 Last Infusion: 05/25/25 00:19 Dose: Infused Assessment & Plan Assessment Luis Fernando Rubio is a 79-year-old M with a PMH of hypertension, hyperlipidemia, hypothyroidism, prediabetes, pacemaker for an unspecified cardiac arrhythmia for which the patient is on amiodarone, and CKD, and a renal cyst who presents today with worsening abdominal pain, nausea, and vomiting for 3 days. Patient was admitted for the work-up and management of possible colitis, pyelonephritis and OBED on CKD. #Colitis CTAP showed a diffuse nonspecific colitis pattern that could possibly signify ulcerative colitis or Crohn's disease. CBC showed elevated WBC at 13.7 and CMP showed significantly elevated procalcitonin at 43.37. Patient is s/p po Levaquin given yesterday, and ciprofloxacin and Flagyl given in the ED Endorsing watery diarrhea -Started IV Rocephin 1 gm qD -Started IV Flagyl 500 mg q8HR -Ordered blood cultures -Ordered stool culture, WBC, calprotectin -Ordered C.diff PCR, and Giardia antigen -Ordered daily weight monitoring and strict I's & O's -Placed on NPO -GI has been consulted, awaiting recommendations #Pyelonephritis #UTI Patient's UA was turbid and showed 1+ protein, high RBC 6, high WBC 6, but was negative for nitrites and LE. Right costovertebral tenderness was present on physical exam Patient is s/p po Levaquin given yesterday, and ciprofloxacin and Flagyl given in the ED -Started IV Rocephin 1 gm qD -Started IV Flagyl 500 mg q8HR -Ordered blood culture -Ordered urine culture -Ordered bladder scan -Ordered bilateral renal ultrasound to r/o hydronephrosis and obstructing stones #OBED #CKD Upon admission, CMP showed a high BUN of 39, a high creatinine of 3.1 (worsening from 2.2 yesterday), and low eGFR at 20. -Started 1 L IV LR maintenance fluid -Ordered random urine total protein, electrolytes, and creatinine #Acidosis of unknown etiology CMP showed a slightly elevated lactic acid of 2.4 Unclear at this time whether this is 2/2 lactic acidosis or RTA on CKD in the setting of UTI. -Restarted home medication of po sodium bicarbonate 650 mg qD -Started 1 L IV LR maintenance fluid (chronic) #Unspecified cardiac arrhythmia #Pacemaker -Restarted home medication of po amiodarone 100 mg qD #Possible hypothyroidism -Restarted home medication of po Levothyroxine 50 mcg ACBR #Possible GERD -Restarted home medication of po Protonix 40 mg qD #Possible T2DM Patient had a slightly elevated glucose of 133 in the likely setting of fasting. -Ordered hemoglobin A1c -Started insulin sliding scale Hospital Management: Disposition: undergoing workup and management of possible colitis, pyelonephritis, and OBED Fluids: 1 L IV LR maintenance fluids Diet: renal Lines: none DVT Prophylaxis: heparin gtt Rich: not in place CODE STATUS: Full Code I have examined the patient and conferred with my attending, Dr. Meza, and my senior resident, Dr. Avila, regarding them. Ty Brooks DO PGY-1 Internal Medicine Attending Provider Attestation/Addendum After examination of the patient and review of the clinical data I feel that this patient needs admission to the hospital for further treatment/evaluation. I have discussed and was present for the essential components of the history, physical examination, diagnosis, and treatment plan with the resident. I agree with the patient's care as documented by the resident and amended herein by me. Harrison Meza DO. Although this document has been carefully reviewed, there may still be some phonetic and other typographical errors. These errors are purely grammatical due to imperfections in the software program and should not be construed in any way to compromise the substance of the patient's medical care during this visit. Patient seen and evaluated in the ED the patient is a 78-year-old male with a significant past medical history of hypertension, hyperlipidemia, hypothyroidism, prediabetes, pacemaker for an unspecified cardiac arrhythmia for which the patient is on amiodarone, and CKD, and a renal cyst, who presented to the ED today for abdominal pain with associated nausea and vomiting for approximately 3 days prior to admission. Patient's vomiting is nonbloody and nonbilious, patient also endorses diarrhea with 3 episodes over the last 24 hours which she describes as watery. Patient was prescribed antibiotics in the last several months per chart review. The patient has not eaten any out of the ordinary foods, no one else in the family is sick and denies any recent travel. The patient was seen in the ED yesterday on 05/23 for similar symptoms of generalized weakness, headache, nausea, vomiting and abdominal cramping with associated diarrhea and was discharged with a diagnosis of gastroenteritis possible prostatitis. In the ED, blood pressure was soft at 92/60 mmHg, patient was afebrile, SpO2 96% on room air. WBC 13.7 which is down trended since yesterday. Bicarb 19.3, unclear if this is acute or chronic considering CKD and the patient is apparently on sodium bicarbonate at home. BUN 39, creatinine 3.1 which is worse from labs performed yesterday on 05/23. Lactic acid was 2.4 on arrival and is since down trended. Pro-Ac elevated at 43. Urinalysis is positive. EKG demonstrating a paced rhythm. Patient did have blood cultures during his ED visit yesterday which demonstrating NGTD. A CTAP performed on 05/23 was significant for diffuse nonspecific colitis and perinephric stranding with a 14 mm posterior right renal cyst also present. Patient will be admitted to telemetry for OBED on CKD, diffuse colitis, lactic acidosis versus acidosis from CKD/RTA, and possible UTI. Blood and urine cultures are pending, the patient did receive Cipro and Flagyl in the ED however changed to ceftriaxone and Flagyl for now. Stool studies to include C. difficile been ordered, IVF has been ordered, renal ultrasound and urine electrolytes ordered and gastroenterology has been consulted for the diffuse colitis. Will continue to monitor closely, patient clinically stable, will restart home meds as appropriate.
[2025-05-25 01:13] LABS: Lactic Acid, 3 HR 2.1 mMol/L (0.4-2.0)
[2025-05-25] MEDS: cefTRIAXone/D5w 1gm IV premix 1 GM/50 ML BAG IV ×2 (01:17→08:57)
[2025-05-25] MEDS: RINGERS LACTATED 1000 ML 1,000 ML 75 ML IV (01:20)
--- NOTE | 2025-05-25 02:51 | PRELIM_ITS ---
Renal/Retroperitoneal ultrasound. May 25, 2025 at 0106 hours. Clinical history: Acute renal failure. Technique: Duplex scan of the bilateral renal arterial and venous tree was performed utilizing 2D grayscale imaging, Doppler spectral analysis and color flow. Comparison: No prior study is available for comparison. Findings: Right: The right kidney measures 9.3 x 5.5 x 6 cm and demonstrates a 1.5 x 1.2 x 1.7 cm cyst in the lateral aspect. Right renal parenchymal scarring is demonstrated. There is no hydronephrosis or renal calculus. The corticomedullary differentiation is maintained. A 5.4 x 3 x 3.8 cm hypoechoic structure is demonstrated anterior to the right kidney. Left: The left kidney measures 9.5 x 4.3 x 5 cm and demonstrates parenchymal scarring. There is no hydronephrosis or renal calculus. The corticomedullary differentiation is maintained. The urinary bladder is unremarkable. Both ureteric jets are visualized.The prostate measures 3.4 x 3 x 3.5 cm (volume of 17.9 cm). Impression: 1. No evidence of hydronephrosis. 2. Renal parenchymal scarring bilaterally, likely related to chronic renal disease. 3. A 5.4 x 3 x 3.8 cm hypoechoic structure demonstrated anterior to the right kidney which may be related to bowel. Recommend clinical correlation and further evaluation with intravenous contrast CT, as indicated. Report Electronically Signed By: Khai Joaquin 05/25/2025 2:51:19 AM [EST]
[2025-05-25] MEDS: LEVOTHYROXINE SODIUM 25 MCG TABLET 50 MCG PO (05:30)
[2025-05-25] MEDS: metroNIDAZOLE/NS 500 MG IVPB 500 MG/100 ML BAG 200 MG IV ×3 (06:11→21:03)
[2025-05-25 06:32] LABS: Basophils # (Auto) 0.1 Thou/mm3 (0.0-0.2); Basophils % (Auto) 1 % (0-2.5); Eosinophils # (Auto) 0.0 Thou/mm3 (0.0-0.5); Eosinophils % (Auto) 0 % (0-10); Hematocrit 31.0 % (41.0-53.0); Hemoglobin 10.7 g/dL (13.5-16.0); Immature Granulocytes Auto 0.15 Thou/mm3 (0.00-0.00); Lymphocytes # (Auto) 1.9 Thou/mm3 (1.0-4.8); Lymphocytes % (Auto) 19 % (10-50); Mean Corpuscular HGB Conc 34.5 g/dl (31.0-37.0); Mean Corpuscular Hemoglobin 29.8 pg (25.0-35.0); Mean Corpuscular Volume 86 fL (80-100); Monocytes # (Auto) 0.7 Thou/mm3 (0.0-0.8); Monocytes % (Auto) 7 % (0-12); Neutrophils # (Auto) 7.0 Thou/mm3 (1.8-7.7); Neutrophils % (Auto) 71 % (37-80); Nucleated Red Blood Cell # 0.00 Thou/mm3 (0.00-0.00); Nucleated Red Blood Cell % 0 /100 WBC (0); Platelet Count 151 Thou/mm3 (140-440); RDW Standard Deviation 42.7 fL (35.1-43.9); Red Blood Count 3.59 Miln/mm3 (4.50-5.90); White Blood Count 9.8 Thou/mm3 (3.8-10.6)
--- NOTE | 2025-05-25 06:41 | ESPR_ITS ---
Documentation for date of: 05/25/25 Subjective Subjective Interval history: Patient was seen and examined at bedside. A.m. vitals and labs reviewed. Patient complains of throat pain. Had 3-4 non bloody diarrhea. No vomit, but feels nausea. Has Urinary frequency and urgency. Diffuse abdominal pain. Denies chest pain, headache, fever or chills. Patient's WBC count is downtrending from 13.7 to 9.8. and Lactic acid from 2.4 to 2.1. Patient's Cr decreased from 3.1 to 2.8. Will continue antibiotics and IVF and consult GI. Exam Vital Signs Temp Pulse Resp BP Pulse Ox O2 Del Method 97.5 F 88 18 100/64 96 Room Air 05/25/25 05:14 05/25/25 05:14 05/25/25 05:14 05/25/25 05:14 05/25/25 05:14 05/25/25 05:14 Narrative Exam General: No acute distress, well nourished Eye: PERRL, EOMI, normal conjunctiva, no scleral icterus HENT: Normocephalic, atraumatic, hearing intact to conversation at normal volume, moist oral mucosa Neck: Supple, non-tender, no JVD, no lymphadenopathy Lungs: Non-labored respirations, symmetric chest rise, Clear to auscultate bilaterally Heart: Peripheral pulses intact bilaterally Abdomen: Soft, non-distended, diffuse abdominal pain Musculoskeletal: Normal range of motion and strength Skin: Skin is warm, dry, no rashes or lesions. Psychiatric: Cooperative, appropriate mood and affect Neuro: Cranial nerves II-XII grossly intact. Strength 5/5 throughout. Sensations intact to light touch. Objective Labs 05/26/25 05:05 05/26/25 05:05 Labs: Laboratory Results - last 24 hr 05/24/25 05/24/25 05/25/25 21:36 22:32 01:03 WBC 13.7 H RBC 4.63 Hgb 13.9 Hct 40.7 L MCV 88 MCH 30.0 MCHC 34.2 RDW Std Deviation 43.8 Plt Count 203 Neut % (Auto) 78 Lymph % (Auto) 14 [place] % (Auto) 7 Eos % (Auto) 0 Baso % (Auto) 0 Neut # (Auto) 10.7 H Lymph # (Auto) 1.9 [place] # (Auto) 0.9 H Eos # (Auto) 0.0 Baso # (Auto) 0.0 Immature Gran # (Auto) 0.25 H Absolute Nucleated RBC 0.00 Immature Gran % 2 H Nucleated RBC % 0 PT 13.2 H INR 1.2 APTT 38.8 H Sodium 136 Potassium 4.3 Chloride 106 Carbon Dioxide 19.3 L Anion Gap 11 BUN 39 H Creatinine 3.1 H D Estim Creat Clear Calc Not Performed. eGFR 20 L BUN/Creatinine Ratio 13 Glucose 133 H Calculated Osmolality 283 Lactic Acid 2.4 H 2.1 H Calcium 9.6 Corrected Calcium 9.7 Phosphorus 4.4 Magnesium 2.2 Total Bilirubin 0.5 AST 34 ALT 25 Alkaline Phosphatase 85 Lactate Dehydrogenase 246 Troponin I < 0.020 B-Natriuretic Peptide 110 H Total Protein 6.8 Albumin 3.9 Globulin 2.9 Albumin/Globulin Ratio 1.3 Lipase 22 Procalcitonin 43.37 H Ur Collection Type Clean Catch Urine Color Yellow Urine Clarity Turbid A Urine pH 5.5 Ur Specific [place] 1.025 Urine Protein 1+ A Urine Glucose (UA) Negative Urine Ketones Negative Urine Blood Negative Urine Nitrite Negative Urine Bilirubin Negative Urine Urobilinogen (Auto) Negative Ur Leukocyte Esterase Negative Urine RBC 6 H Urine WBC 6 H Ur Squamous Epith Cells 1 Urine Bacteria None 05/25/25 06:01 WBC 9.8 RBC 3.59 L Hgb 10.7 L D Hct 31.0 L MCV 86 MCH 29.8 MCHC 34.5 RDW Std Deviation 42.7 Plt Count 151 D Neut % (Auto) 71 Lymph % (Auto) 19 [place] % (Auto) 7 Eos % (Auto) 0 Baso % (Auto) 1 Neut # (Auto) 7.0 Lymph # (Auto) 1.9 [place] # (Auto) 0.7 Eos # (Auto) 0.0 Baso # (Auto) 0.1 Immature Gran # (Auto) 0.15 H Absolute Nucleated RBC 0.00 Immature Gran % 2 H Nucleated RBC % 0 PT INR APTT Sodium Potassium Chloride Carbon Dioxide Anion Gap BUN Creatinine Estim Creat Clear Calc eGFR BUN/Creatinine Ratio Glucose Calculated Osmolality Lactic Acid Calcium Corrected Calcium Phosphorus Magnesium Total Bilirubin AST ALT Alkaline Phosphatase Lactate Dehydrogenase Troponin I B-Natriuretic Peptide Total Protein Albumin Globulin Albumin/Globulin Ratio Lipase Procalcitonin Ur Collection Type Urine Color Urine Clarity Urine pH Ur Specific [place] Urine Protein Urine Glucose (UA) Urine Ketones Urine Blood Urine Nitrite Urine Bilirubin Urine Urobilinogen (Auto) Ur Leukocyte Esterase Urine RBC Urine WBC Ur Squamous Epith Cells Urine Bacteria Quality Measures Quality Measures none Advance care planning discussed with:: patient Assessment & Plan Assessment Current Active Medications: Generic Name Dose Route Start Last Admin Trade Name Freq PRN Reason Stop Dose Admin Acetaminophen 650 mg 05/25/25 00:45 Acetaminophen 325 Mg Tablet PO 06/24/25 00:44 Q6H PRN PAIN SCALE 1-3 (mild Amiodarone HCl 100 mg 05/25/25 09:00 Amiodarone Hcl 200 Mg Tablet PO 06/24/25 08:59 QDAY ERIKA Dextrose 25 ml 05/25/25 00:50 Dextrose 50%-Water Inj 50 Ml Syringe IV 06/24/25 00:49 Q15MIN PRN BG 50-70 responsive npo pt Dextrose 50 ml 05/25/25 00:50 Dextrose 50%-Water Inj 50 Ml Syringe IV 06/24/25 00:49 Q15MIN PRN BG <50 OR BG <70 & pt unresponsive Glucagon 1 mg 05/25/25 00:50 Glucagon Inj 1 Mg Vial IM Q15MIN PRN BG <70, and no IV access Heparin Sodium (Porcine) 5,000 unit 05/25/25 09:00 Heparin Sod Inj 5000 Unit/Ml Vial SC 06/08/25 08:59 Q12HR ERIKA Lactated Ringer's 1,000 mls @ 75 mls/hr 05/25/25 00:45 05/25/25 01:20 Lactated Ringers IV 05/25/25 14:04 75 mls/hr .[id number] ERIKA Administration Ceftriaxone Sodium/Dextrose 1 gm in 50 mls @ 100 mls/hr 05/25/25 00:55 05/25/25 01:52 Rocephin/D5w 1gm Iv Premix IV 06/01/25 00:54 Infused QDAY ERIKA Infusion Metronidazole 500 mg in 100 mls @ 200 mls/hr 05/25/25 06:30 05/25/25 06:11 Flagyl 500 Mg Iv IV 06/01/25 06:29 200 mls/hr Q8HR ERIKA Administration Insulin Human Lispro 0 unit 05/25/25 07:30 Insulin Lispro (Admelog) 1 Unit/0.01 Ml Unit SC 06/24/25 07:29 [facility] Protocol Levothyroxine Sodium 50 mcg 05/25/25 06:00 05/25/25 05:30 Levothyroxine Sodium 25 Mcg Tablet PO 06/24/25 05:59 50 mcg ACBR ERIKA Administration Ondansetron HCl 4 mg 05/25/25 00:45 Ondansetron Inj 2 Mg/Ml Inj 2 Ml IVP 06/24/25 00:44 Q6H PRN NAUSEA OR VOMITING Protocol Pantoprazole Sodium 40 mg 05/25/25 09:00 Pantoprazole 40 Mg Tablet PO 06/24/25 08:59 QDAY ERIKA Protocol Sodium Bicarbonate 650 mg 05/25/25 09:00 Sodium Bicarbonate 650 Mg Tablet PO 06/24/25 08:59 QDAY ERIKA Plan Luis Fernando Rubio is a 79-year-old M with a PMH of hypertension, hyperlipidemia, hypothyroidism, prediabetes, pacemaker for an unspecified cardiac arrhythmia for which the patient is on amiodarone, and CKD, and a renal cyst who presents today with worsening abdominal pain, nausea, and vomiting for 3 days. Patient was admitted for the work-up and management of possible colitis, pyelonephritis and OBED on CKD. #Colitis CTAP showed a diffuse nonspecific colitis pattern that could possibly signify ulcerative colitis or Crohn's disease. CBC showed elevated WBC at 13.7 and CMP showed significantly elevated procalcitonin at 43.37. Patient is s/p po Levaquin given yesterday, and ciprofloxacin and Flagyl given in the ED Endorsing watery diarrhea -Started IV Rocephin 1 gm qD -Started IV Flagyl 500 mg q8HR -Ordered blood cultures -Ordered stool culture, WBC, calprotectin -Ordered C.diff PCR, and Giardia antigen -Ordered daily weight monitoring and strict I's & O's -Placed on NPO -GI has been consulted, awaiting recommendations #Pyelonephritis #UTI Patient's UA was turbid and showed 1+ protein, high RBC 6, high WBC 6, but was negative for nitrites and LE. Right costovertebral tenderness was present on physical exam Patient is s/p po Levaquin given yesterday, and ciprofloxacin and Flagyl given in the ED Renal US (05/25/2025): Moderate bilateral renal parenchymal scar formation, Recommend CT scan abdomen and pelvis follow-up to exclude solid mass anterior to the right kidney -Started IV Rocephin 1 gm qD -Started IV Flagyl 500 mg q8HR -Ordered blood culture -Ordered urine culture -Ordered bladder scan -Ordered bilateral renal ultrasound to r/o hydronephrosis and obstructing stones #OBED #CKD Upon admission, CMP showed a high BUN of 39, a high creatinine of 3.1 (worsening from 2.2 yesterday), and low eGFR at 20. -Started 1 L IV LR maintenance fluid -Ordered random urine total protein, electrolytes, and creatinine #Acidosis of unknown etiology CMP showed a slightly elevated lactic acid of 2.4 Unclear at this time whether this is 2/2 lactic acidosis or RTA on CKD in the setting of UTI. -Restarted home medication of po sodium bicarbonate 650 mg qD -Started 1 L IV LR maintenance fluid (chronic) #Unspecified cardiac arrhythmia #Pacemaker -Restarted home medication of po amiodarone 100 mg qD #Possible hypothyroidism -Restarted home medication of po Levothyroxine 50 mcg ACBR #Possible GERD -Restarted home medication of po Protonix 40 mg qD #Possible T2DM Patient had a slightly elevated glucose of 133 in the likely setting of fasting. -Ordered hemoglobin A1c -Started insulin sliding scale Hospital Management: Disposition: undergoing workup and management of possible colitis, pyelonephritis, and OBED Fluids: 1 L IV LR maintenance fluids Diet: renal Lines: none DVT Prophylaxis: heparin gtt Rich: not in place CODE STATUS: Full Code Assessment and plan discussed with my attending physician Dr. Aysha Osman (PGY-1)- Internal medicine resident Attending Provider Attestation/Addendum Graciela Luo DO, attest that I was physically present for the [place] portions of the service and evaluated the patient with the resident and I reviewed and discussed the case with the resident and agree with the resident's findings and plans of care as documented above Patient seen eval this a.m. Grandson and are at bedside. Patient is eating lunch and is able to tolerate some of his foods food. He denies any nausea or vomiting at this time. Patient states that he was diagnosed with UTI 2 days ago in the ER and had only taken 1 or 2 doses of the levofloxacin. at bedside states that the patient's symptoms of diarrhea did not subside. They deny any recent travel or sick contacts. No other family members at home with similar symptoms. Patient reports some epigastric pain. A renal ultrasound was done showing moderate bilateral renal parenchymal scar formation and a possible solid mass anterior to the right kidney. However, her recent CT abdomen pelvis on 05/23 showed no masses, but a renal cyst. Very low suspicion for any masses in the abdomen. Will defer any further imaging at this time. Pending GI evaluation at this time. Continue IV fluid hydration due to OBED. C. difficile is otherwise negative. Pending [place] stool studies.
[2025-05-25 07:01] LABS: Alanine Aminotransferase 19 U/L (10-49); Albumin, Serum 3.0 gm/dL (3.4-4.8); Albumin/Globulin Ratio 1.3 (1.2-2.2); Alkaline Phosphatase 66 U/L (46-116); Anion Gap 8 (7-16); Aspartate Amino Transferase 27 U/L (0-34); BUN/Creatinine Ratio 14 Ratio (12-20); Bilirubin,Total 0.3 mg/dL (0.3-1.2); Blood Urea Nitrogen 38 mg/dL (9-23); Calcium 8.5 mg/dL (8.3-10.6); Calcium (Corrected) 9.3 mg/dL (8.5-10.1); Carbon Dioxide 21.2 mMol/L (20.0-31.0); Chloride 108 mMol/L (98-107); Creatinine (Component) 2.8 mg/dL (0.6-1.3); Globulin 2.4 gm/dL (2.3-3.5); Glucose 110 mg/dL (74-106); Magnesium 2.0 mg/dL (1.6-2.6); Osmolality,Calculated 283 (275-295); Phosphorous 3.6 mg/dL (2.4-5.1); Potassium 3.9 mMol/L (3.4-5.1); Sodium 137 mMol/L (136-145); Total Protein 5.4 gm/dL (5.7-8.2); eGFR 22 See Note
[2025-05-25 08:09] LABS: Glucose Estimated Average 100 mg/dL (80-131); Hemoglobin A1C 5.1 % Hgb (4.8-6.0)
[2025-05-25] MEDS: SODIUM BICARBONATE 650 MG TABLET PO (08:55)
[2025-05-25] MEDS: PANTOPRAZOLE 40 MG TABLET PO (08:55)
[2025-05-25] MEDS: HEPARIN SOD INJ 5000 UNIT/ML VIAL SC ×2 (08:55→20:48)
[2025-05-25] MEDS: AMIODARONE HCL 200 MG TABLET 100 MG PO (08:55)
[2025-05-25 09:02] LABS: Stool for WBCs Negative (Negative)
[2025-05-25 09:38] LABS: Clostridium Difficile PCR Negative (Negative)
--- NOTE | 2025-05-25 14:50 | PC.SS ---
Patient is a 79YO male; reason for visit: COLITIS + PYELONEPHRITIS, OBED SS met with patient and spouse Malgorzata Smith at bedside to complete initial assessment. Role and purpose of today's contact was explained to both. Patient confirmed his demographic information. He stated his spouse Malgorzata Smith [phone], is his primary medical surrogate decisionmaker. Patient explained he is independent with ADL completion and ambulation as well. [facility] PCP: Trevor Braden, last appointment was March 2025. Patient unable to provide exact appointment date. Discharge plan: Home, family to provide transportation. Next of kin: Spouse Malgorzata Smith [phone]
[2025-05-25] MEDS: LOPERAMIDE 2 MG CAPSULE PO (15:16)
[2025-05-25] MEDS: HYDROcodone/APAP 5/325 TABLET 1 TAB PO (15:16)
[2025-05-25] MEDS: RINGERS LACTATED 1000 ML 1,000 ML 100 ML IV (15:17)
--- NOTE | 2025-05-25 18:21 | PD.IMCONS ---
HPI Data of Consult Requesting Physician: Gee Meza DO Primary Care Provider: Trevor Jones PA-C Consult Narrative Reason for consult: Pain abdomen nausea vomiting weakness, abnormal CTAP History of present illness: 79 years old male came yesterday to the emergency room for the second time for nausea vomiting abdominal pain feeling weak and difficult to ambulate It day before he came in and was sent home on Levaquin CT scan of the abdomen pelvis done without contrast in the emergency room showed absent gallbladder diffuse nonspecific colitis Case was discussed with me by the ER physician neurology physician assistant ANDREW and patient was subsequently admitted Patient currently on Rocephin and metronidazole At my request I have asked the SENIOR VICE PRESIDENT & GENERAL COUNSEL to order C. difficile as well as stool culture sensitivity C. difficile is negative Culture and sensitivities pending Gram stain for WBC is negative Patient has a very significant past medical history of permanent cardiac pacemaker for unspecified cardiac arrhythmias essential hypertension BPH and hypothyroidism and chronic renal disease with the admitting BUN/creatinine of 39 and 3.1 cc:: cc: Gee Meza DO Review of Systems Review of Systems Systems Reviewed: All systems reviewed, normal except as documented Meds Home Medications and Allergies Home Medications ?Medication ?Instructions ?Recorded ?Confirmed ?Type verapamil 180 mg 24 hr 180 mg PO QAM 08/07/24 05/25/25 History capsule,extended release amiodarone 200 mg tablet 100 mg PO QDAY 05/25/25 05/25/25 History levothyroxine 88 mcg tablet 88 mcg PO ACBR 05/25/25 05/25/25 History omeprazole 20 mg capsule,delayed 20 mg PO QDAY 05/25/25 05/25/25 History release Allergies Allergy/AdvReac Type Severity Reaction Status Date / Time No Known Allergies Allergy Verified 05/24/25 19:54 Exam Vital Signs Temp Pulse Resp BP Pulse Ox O2 Del Method 98.1 F 84 16 122/85 H 97 Room Air 05/25/25 15:44 05/25/25 16:00 05/25/25 15:44 05/25/25 15:44 05/25/25 15:44 05/25/25 15:44 Constitutional Comments: Chronically ill-appearing Routine Respiratory Exam Comments: Normal to auscultation Routine Abdominal Exam Comments: Tender positive bowel sounds Results Labs 05/26/25 05:05 05/26/25 05:05 Labs: Short CBC 05/24/25 05/25/25 Range/Units 21:36 06:01 WBC 13.7 H 9.8 (3.8-10.6) Thou/mm3 Hgb 13.9 10.7 L D (13.5-16.0) g/dL Hct 40.7 L 31.0 L (41.0-53.0) % Plt Count 203 151 D (140-440) Thou/mm3 BMP 05/24/25 05/25/25 21:36 06:01 Sodium 136 137 Potassium 4.3 3.9 Chloride 106 108 H Carbon Dioxide 19.3 L 21.2 BUN 39 H 38 H Creatinine 3.1 H D 2.8 H Glucose 133 H 110 H Calcium 9.6 8.5 Cardiac Enzymes 05/24/25 Range/Units 21:36 Troponin I < 0.020 (0.0-0.045) ng/mL Liver Function 05/24/25 05/25/25 Range/Units 21:36 06:01 Total Bilirubin 0.5 0.3 (0.3-1.2) mg/dL AST 34 27 (0-34) U/L ALT 25 19 (10-49) U/L Alkaline Phosphatase 85 66 D (46-116) U/L Albumin 3.9 3.0 L D (3.4-4.8) gm/dL Urine 05/24/25 Range/Units 22:32 Urine Color Yellow (Lt Yel-Yel) Urine Clarity Turbid A (Clear/Hazy) Urine pH 5.5 (5.0-7.0) Ur Specific [place] 1.025 (1.001-1.035) Urine Protein 1+ A (Neg - Trace) Urine Glucose (UA) Negative (Negative) Assessment and Plan Additional Assessment & Plan Additional Plan: # Inflammatory versus infectious enterocolitis C. difficile is negative Suggestions CRP Waiting for fecal calprotectin Ordered ANCA antibody Clear liquid diet GoLytely prep consent obtained for fiberoptic colonoscopy with possible biopsy possible therapeutic intervention under intravenous moderate sedation Other medical problems include CKD stage III Permanent cardiac pacemaker Hypothyroidism Essential hypertension Thank you very much for the opportunity to participate in care of this patient
[2025-05-25 19:42] LABS: C-Reactive Protein 25.1 mg/dL (0.0-0.9)
[2025-05-25] MEDS: NA SU/NAHCO3/KC/PEG (Golytely) 4,000 ML BTL 4000 ML PO (20:12)
[2025-05-26] VITALS (7 sets, daily range): BP systolic 110–151; BP diastolic 74–88; PULSE 63–95; RESP 12–19; TEMP 36.1–36.3; O2SAT 95–96
[2025-05-26] MEDS: RINGERS LACTATED 1000 ML 1,000 ML 100 ML IV ×2 (02:55→11:31)
[2025-05-26] MEDS: metroNIDAZOLE/NS 500 MG IVPB 500 MG/100 ML BAG 200 MG IV ×3 (05:36→21:44)
[2025-05-26] MEDS: LEVOTHYROXINE SODIUM 25 MCG TABLET 50 MCG PO (05:36)
[2025-05-26 06:16] LABS: Basophils # (Auto) 0.0 Thou/mm3 (0.0-0.2); Basophils % (Auto) 0 % (0-2.5); Eosinophils # (Auto) 0.0 Thou/mm3 (0.0-0.5); Eosinophils % (Auto) 0 % (0-10); Hematocrit 31.5 % (41.0-53.0); Hemoglobin 10.6 g/dL (13.5-16.0); Immature Granulocytes Auto 0.13 Thou/mm3 (0.00-0.00); Lymphocytes # (Auto) 1.7 Thou/mm3 (1.0-4.8); Lymphocytes % (Auto) 18 % (10-50); Mean Corpuscular HGB Conc 33.7 g/dl (31.0-37.0); Mean Corpuscular Hemoglobin 29.5 pg (25.0-35.0); Mean Corpuscular Volume 88 fL (80-100); Monocytes # (Auto) 0.8 Thou/mm3 (0.0-0.8); Monocytes % (Auto) 9 % (0-12); Neutrophils # (Auto) 6.8 Thou/mm3 (1.8-7.7); Neutrophils % (Auto) 71 % (37-80); Nucleated Red Blood Cell # 0.00 Thou/mm3 (0.00-0.00); Nucleated Red Blood Cell % 0 /100 WBC (0); Platelet Count 142 Thou/mm3 (140-440); RDW Standard Deviation 44.5 fL (35.1-43.9); Red Blood Count 3.59 Miln/mm3 (4.50-5.90); White Blood Count 9.5 Thou/mm3 (3.8-10.6)
[2025-05-26 07:01] LABS: Alanine Aminotransferase 17 U/L (10-49); Albumin, Serum 2.9 gm/dL (3.4-4.8); Albumin/Globulin Ratio 1.2 (1.2-2.2); Alkaline Phosphatase 65 U/L (46-116); Anion Gap 10 (7-16); Aspartate Amino Transferase 26 U/L (0-34); BUN/Creatinine Ratio 18 Ratio (12-20); Bilirubin,Total 0.3 mg/dL (0.3-1.2); Blood Urea Nitrogen 29 mg/dL (9-23); Calcium 8.3 mg/dL (8.3-10.6); Calcium (Corrected) 9.2 mg/dL (8.5-10.1); Carbon Dioxide 21.9 mMol/L (20.0-31.0); Chloride 110 mMol/L (98-107); Creatinine (Component) 1.6 mg/dL (0.6-1.3); Estimated Creatinine Clearance 34.9 mL/min (>60); Globulin 2.4 gm/dL (2.3-3.5); Glucose 87 mg/dL (74-106); Osmolality,Calculated 287 (275-295); Potassium 3.6 mMol/L (3.4-5.1); Sodium 142 mMol/L (136-145); Total Protein 5.3 gm/dL (5.7-8.2); eGFR 44 See Note
[2025-05-26] MEDS: cefTRIAXone/D5w 1gm IV premix 1 GM/50 ML BAG IV (08:55)
[2025-05-26] MEDS: PANTOPRAZOLE 40 MG TABLET PO (08:56)
[2025-05-26] MEDS: AMIODARONE HCL 200 MG TABLET 100 MG PO (08:56)
[2025-05-26] MEDS: SODIUM BICARBONATE 650 MG TABLET PO (08:56)
[2025-05-26] MEDS: HEPARIN SOD INJ 5000 UNIT/ML VIAL SC ×2 (08:58→21:44)
--- NOTE | 2025-05-26 09:40 | PC.SS ---
Follow up note: Pending Colonoscopy. Pt will return home upon dc.
[2025-05-26 09:44] LABS: Magnesium 1.5 mg/dL (1.6-2.6); Phosphorous 2.9 mg/dL (2.4-5.1)
--- NOTE | 2025-05-26 09:48 | ESPR_ITS ---
<Statement entered by Alejandra Pathak MD - 06/02/25 14:16> I reviewed above note and agree with findings and plans. I have also personally examined the patient with medicine team and went over assessment and plan with medical team including international marketing coordinator and resident physician. Documentation for date of: 05/26/25 Patient is a 79 year old male with past medical history of HTN, HLD, Hypothyrodism, pre-diabetes, s/p pacemaker, CKD Stage 3a, GERD, and history of renal cyst. Patient was examined at bedside. Patient complained of mild distention and was noted to be hyperresonant on physical exam. Patient denied past medical history of similar presentation. Patient denied eating products left unfridgereated or with mayonnaise. Patient denied eating uder cooked food. Paitnet is schedule for colonoscopy. Continue IV antibiotics. Antibiotics also covering pyelonephritits given flank pain and image on CT pelvis and abdomen. NO hydronephrosis noted. Blood cultures negative after 24 hours. Urine culture pending. Pending colonoscopy Subjective Subjective Interval history: Patient was seen and examined at bedside. A.m. vitals and labs reviewed. Patient currently taking Golytely prep for colonoscopy scheduled for today. Multiple diarrhea due to the Golytely prep. Patient reports lower central abdominal pain. Slight dysuria, frequency and urgency. Mild flank pain on the right. Patient's OBED improving with Cr decreasing from 2.8 to 1.6. Blood culture negative for 24hrs, Urine culture no significant growth, Stool WBC was negative, and C.diff was negative. Exam Vital Signs Temp Pulse Resp BP Pulse Ox O2 Del Method 97.0 F 95 18 119/84 95 Room Air 05/26/25 08:00 05/26/25 08:56 05/26/25 08:00 05/26/25 08:56 05/26/25 08:00 05/26/25 08:00 Narrative Exam General: No acute distress, well nourished Eye: PERRL, EOMI, normal conjunctiva, no scleral icterus HENT: Normocephalic, atraumatic, hearing intact to conversation at normal volume, moist oral mucosa Neck: Supple, non-tender, no JVD, no lymphadenopathy Lungs: Non-labored respirations, symmetric chest rise, Clear to auscultate bilaterally Heart: Peripheral pulses intact bilaterally Abdomen: Soft, non-distended, diffuse abdominal pain Musculoskeletal: Normal range of motion and strength Skin: Skin is warm, dry, no rashes or lesions. Psychiatric: Cooperative, appropriate mood and affect Neuro: Cranial nerves II-XII grossly intact. Strength 5/5 throughout. Sensations intact to light touch. Objective Labs 05/26/25 05:05 05/26/25 05:05 Labs: Laboratory Results - last 24 hr 05/25/25 05/26/25 18:40 05:05 WBC 9.5 RBC 3.59 L Hgb 10.6 L Hct 31.5 L MCV 88 MCH 29.5 MCHC 33.7 RDW Std Deviation 44.5 H Plt Count 142 Neut % (Auto) 71 Lymph % (Auto) 18 [place] % (Auto) 9 Eos % (Auto) 0 Baso % (Auto) 0 Neut # (Auto) 6.8 Lymph # (Auto) 1.7 [place] # (Auto) 0.8 Eos # (Auto) 0.0 Baso # (Auto) 0.0 Immature Gran # (Auto) 0.13 H Absolute Nucleated RBC 0.00 Immature Gran % 1 H Nucleated RBC % 0 Sodium 142 Potassium 3.6 Chloride 110 H Carbon Dioxide 21.9 Anion Gap 10 BUN 29 H Creatinine 1.6 H D Estim Creat Clear Calc 34.9 L eGFR 44 L BUN/Creatinine Ratio 18 Glucose 87 Calculated Osmolality 287 Calcium 8.3 Corrected Calcium 9.2 Phosphorus 2.9 Magnesium 1.5 L Total Bilirubin 0.3 AST 26 ALT 17 Alkaline Phosphatase 65 C-Reactive Prot, Quant 25.1 H Total Protein 5.3 L Albumin 2.9 L Globulin 2.4 Albumin/Globulin Ratio 1.2 Quality Measures Quality Measures none Advance care planning discussed with:: patient, spouse and child Assessment & Plan Assessment Current Active Medications: Generic Name Dose Route Start Last Admin Trade Name Freq PRN Reason Stop Dose Admin Acetaminophen 650 mg 05/25/25 00:45 Acetaminophen 325 Mg Tablet PO 06/24/25 00:44 Q6H PRN PAIN SCALE 1-3 (mild Hydrocodone Bitart/Acetaminophen 1 tab 05/25/25 15:09 05/25/25 15:16 Hydrocodone/Apap 5/325 Tablet PO 05/30/25 15:08 1 tab Q8HR PRN Administration PAIN SCALE 4-10(Mod-Sev Amiodarone HCl 100 mg 05/26/25 09:00 05/26/25 08:56 Amiodarone Hcl 200 Mg Tablet PO 06/25/25 08:59 100 mg QDAY ERIKA Administration Dextrose 25 ml 05/25/25 00:50 Dextrose 50%-Water Inj 50 Ml Syringe IV 06/24/25 00:49 Q15MIN PRN BG 50-70 responsive npo pt Dextrose 50 ml 05/25/25 00:50 Dextrose 50%-Water Inj 50 Ml Syringe IV 06/24/25 00:49 Q15MIN PRN BG <50 OR BG <70 & pt unresponsive Glucagon 1 mg 05/25/25 00:50 Glucagon Inj 1 Mg Vial IM Q15MIN PRN BG <70, and no IV access Heparin Sodium (Porcine) 5,000 unit 05/25/25 09:00 05/26/25 08:58 Heparin Sod Inj 5000 Unit/Ml Vial SC 06/08/25 08:59 5,000 unit Q12HR ERIKA Administration Ceftriaxone Sodium/Dextrose 1 gm in 50 mls @ 100 mls/hr 05/25/25 00:55 05/26/25 08:55 Rocephin/D5w 1gm Iv Premix IV 06/01/25 00:54 50 mls/hr QDAY ERIKA Administration Metronidazole 500 mg in 100 mls @ 200 mls/hr 05/25/25 06:30 05/26/25 05:36 Flagyl 500 Mg Iv IV 06/01/25 06:29 200 mls/hr Q8HR ERIKA Administration Lactated Ringer's 1,000 mls @ 100 mls/hr 05/25/25 15:15 05/26/25 02:55 Lactated Ringers IV 05/26/25 21:14 100 mls/hr .Q10H ERIKA Administration Insulin Human Lispro 0 unit 05/25/25 07:30 05/26/25 07:26 Insulin Lispro (Admelog) 1 Unit/0.01 Ml Unit SC 06/24/25 07:29 Not Given ACHS ERIKA Protocol Levothyroxine Sodium 50 mcg 05/25/25 06:00 05/26/25 05:36 Levothyroxine Sodium 25 Mcg Tablet PO 06/24/25 05:59 50 mcg ACBR ERIKA Administration Loperamide HCl 2 mg 05/25/25 15:06 05/25/25 15:16 Loperamide 2 Mg Capsule PO 06/01/25 15:05 2 mg Q6HR PRN Administration DIARRHEA Ondansetron HCl 4 mg 05/25/25 00:45 Ondansetron Inj 2 Mg/Ml Inj 2 Ml IVP 06/24/25 00:44 Q6H PRN NAUSEA OR VOMITING Protocol Pantoprazole Sodium 40 mg 05/25/25 09:00 05/26/25 08:56 Pantoprazole 40 Mg Tablet PO 06/24/25 08:59 40 mg QDAY ERIKA Administration Protocol Sodium Bicarbonate 650 mg 05/25/25 09:00 05/26/25 08:56 Sodium Bicarbonate 650 Mg Tablet PO 06/24/25 08:59 650 mg QDAY ERIKA Administration Plan Luis Fernando Rubio is a 79-year-old M with a PMH of hypertension, hyperlipidemia, hypothyroidism, prediabetes, pacemaker for an unspecified cardiac arrhythmia for which the patient is on amiodarone, and CKD, and a renal cyst who presents today with worsening abdominal pain, nausea, and vomiting for 3 days. Patient was admitted for the work-up and management of possible colitis, pyelonephritis and OBED on CKD. #Colitis CTAP showed a diffuse nonspecific colitis pattern that could possibly signify ulcerative colitis or Crohn's disease. CBC showed elevated WBC at 13.7 and CMP showed significantly elevated procalcitonin at 43.37. Patient is s/p po Levaquin given yesterday, and ciprofloxacin and Flagyl given in the ED Endorsing watery diarrhea -Started IV Rocephin 1 gm qD -Started IV Flagyl 500 mg q8HR -calprotectin Pending -Ordered C.diff PCR, and Giardia antigen -Ordered daily weight monitoring and strict I's & O's -Placed on NPO -Blood culture negative for 24hrs, Urine culture no significant growth, Stool WBC was negative, and C.diff was negative. -Colonoscopy pending today -GI has been consulted, awaiting recommendations #Pyelonephritis #UTI Patient's UA was turbid and showed 1+ protein, high RBC 6, high WBC 6, but was negative for nitrites and LE. Right costovertebral tenderness was present on physical exam Patient is s/p po Levaquin given yesterday, and ciprofloxacin and Flagyl given in the ED Renal US (05/25/2025): Moderate bilateral renal parenchymal scar formation, Recommend CT scan abdomen and pelvis follow-up to exclude solid mass anterior to the right kidney -Started IV Rocephin 1 gm qD -Started IV Flagyl 500 mg q8HR -Ordered blood culture -Ordered urine culture -Ordered bladder scan -Ordered bilateral renal ultrasound to r/o hydronephrosis and obstructing stones #OBED #CKD Upon admission, CMP showed a high BUN of 39, a high creatinine of 3.1 (worsening from 2.2 yesterday), and low eGFR at 20. -Started 1 L IV LR maintenance fluid -Ordered random urine total protein, electrolytes, and creatinine -OBED improving with Cr decreasing from 2.8 to 1.6. #Acidosis of unknown etiology CMP showed a slightly elevated lactic acid of 2.4 Unclear at this time whether this is 2/2 lactic acidosis or RTA on CKD in the setting of UTI. -Restarted home medication of po sodium bicarbonate 650 mg qD -Started 1 L IV LR maintenance fluid (chronic) #Unspecified cardiac arrhythmia #Pacemaker -Restarted home medication of po amiodarone 100 mg qD #Possible hypothyroidism -Restarted home medication of po Levothyroxine 50 mcg ACBR #Possible GERD -Restarted home medication of po Protonix 40 mg qD #Possible T2DM Patient had a slightly elevated glucose of 133 in the likely setting of fasting. -Ordered hemoglobin A1c -Started insulin sliding scale Hospital Management: Disposition: undergoing workup and management of possible colitis, pyelonephritis, and OBED Fluids: 1 L IV LR maintenance fluids Diet: renal Lines: none DVT Prophylaxis: heparin gtt Rich: not in place CODE STATUS: Full Code Assessment and plan discussed with my attending physician Dr. Pathak and Dr. Cunningham (PGY-2) Dr. Osman (PGY-1)- Internal medicine resident
[2025-05-26] MEDS: HYDROcodone/APAP 5/325 TABLET 1 TAB PO ×2 (13:21→21:43)
--- NOTE | 2025-05-26 21:59 | PD.IMPROG ---
Documentation for date of: 05/26/25 Subjective Subjective Interval history: GoLytely prep in progress colonoscopy scheduled for tomorrow stool C. difficile negative Exam Vital Signs Temp Pulse Resp BP Pulse Ox O2 Del Method 97.1 F 63 17 151/87 H 95 Room Air 05/26/25 20:00 05/26/25 20:00 05/26/25 20:00 05/26/25 20:00 05/26/25 20:00 05/26/25 20:00 Objective Labs 05/26/25 05:05 05/26/25 05:05 Labs: Laboratory Results - last 24 hr 05/26/25 05:05 WBC 9.5 RBC 3.59 L Hgb 10.6 L Hct 31.5 L MCV 88 MCH 29.5 MCHC 33.7 RDW Std Deviation 44.5 H Plt Count 142 Neut % (Auto) 71 Lymph % (Auto) 18 [place] % (Auto) 9 Eos % (Auto) 0 Baso % (Auto) 0 Neut # (Auto) 6.8 Lymph # (Auto) 1.7 [place] # (Auto) 0.8 Eos # (Auto) 0.0 Baso # (Auto) 0.0 Immature Gran # (Auto) 0.13 H Absolute Nucleated RBC 0.00 Immature Gran % 1 H Nucleated RBC % 0 Sodium 142 Potassium 3.6 Chloride 110 H Carbon Dioxide 21.9 Anion Gap 10 BUN 29 H Creatinine 1.6 H D Estim Creat Clear Calc 34.9 L eGFR 44 L BUN/Creatinine Ratio 18 Glucose 87 Calculated Osmolality 287 Calcium 8.3 Corrected Calcium 9.2 Phosphorus 2.9 Magnesium 1.5 L Total Bilirubin 0.3 AST 26 ALT 17 Alkaline Phosphatase 65 Total Protein 5.3 L Albumin 2.9 L Globulin 2.4 Albumin/Globulin Ratio 1.2 Impressions Impression: Diarrhea abnormal CT scan of the abdomen pelvis colonoscopy a.m. Assessment & Plan A&P Narrative # Inflammatory versus infectious enterocolitis C. difficile is negative Suggestions CRP Waiting for fecal calprotectin Ordered ANCA antibody Clear liquid diet GoLytely prep consent obtained for fiberoptic colonoscopy with possible biopsy possible therapeutic intervention under intravenous moderate sedation Other medical problems include CKD stage III Permanent cardiac pacemaker Hypothyroidism Essential hypertension Thank you very much for the opportunity to participate in care of this patient Time Spent With Patient Time: Total time spent is greater than 50% in coordination of care (as documented) at patient's floor/unit and/or counseling patient:
[2025-05-27] VITALS (17 sets, daily range): BP systolic 97–139; BP diastolic 71–96; PULSE 70–101; RESP 14–18; TEMP 36.1–36.7; O2SAT 94–99
[2025-05-27] MEDS: metroNIDAZOLE/NS 500 MG IVPB 500 MG/100 ML BAG 200 MG IV ×3 (05:45→21:54)
[2025-05-27] MEDS: LEVOTHYROXINE SODIUM 25 MCG TABLET 50 MCG PO (05:45)
[2025-05-27 06:26] LABS: Basophils # (Auto) 0.0 Thou/mm3 (0.0-0.2); Basophils % (Auto) 0 % (0-2.5); Eosinophils # (Auto) 0.0 Thou/mm3 (0.0-0.5); Eosinophils % (Auto) 1 % (0-10); Hematocrit 31.3 % (41.0-53.0); Hemoglobin 10.7 g/dL (13.5-16.0); Immature Granulocytes Auto 0.04 Thou/mm3 (0.00-0.00); Lymphocytes # (Auto) 1.9 Thou/mm3 (1.0-4.8); Lymphocytes % (Auto) 29 % (10-50); Mean Corpuscular HGB Conc 34.2 g/dl (31.0-37.0); Mean Corpuscular Hemoglobin 29.4 pg (25.0-35.0); Mean Corpuscular Volume 86 fL (80-100); Monocytes # (Auto) 0.8 Thou/mm3 (0.0-0.8); Monocytes % (Auto) 12 % (0-12); Neutrophils # (Auto) 3.6 Thou/mm3 (1.8-7.7); Neutrophils % (Auto) 58 % (37-80); Nucleated Red Blood Cell # 0.00 Thou/mm3 (0.00-0.00); Nucleated Red Blood Cell % 0 /100 WBC (0); Platelet Count 135 Thou/mm3 (140-440); RDW Standard Deviation 43.6 fL (35.1-43.9); Red Blood Count 3.64 Miln/mm3 (4.50-5.90); White Blood Count 6.3 Thou/mm3 (3.8-10.6)
[2025-05-27 06:35] LABS: Alanine Aminotransferase 16 U/L (10-49); Albumin, Serum 2.9 gm/dL (3.4-4.8); Albumin/Globulin Ratio 1.3 (1.2-2.2); Alkaline Phosphatase 62 U/L (46-116); Anion Gap 9 (7-16); Aspartate Amino Transferase 31 U/L (0-34); BUN/Creatinine Ratio 16 Ratio (12-20); Bilirubin,Total 0.3 mg/dL (0.3-1.2); Blood Urea Nitrogen 22 mg/dL (9-23); Calcium 8.3 mg/dL (8.3-10.6); Calcium (Corrected) 9.2 mg/dL (8.5-10.1); Carbon Dioxide 25.7 mMol/L (20.0-31.0); Chloride 109 mMol/L (98-107); Creatinine (Component) 1.4 mg/dL (0.6-1.3); Estimated Creatinine Clearance 39.9 mL/min (>60); Globulin 2.3 gm/dL (2.3-3.5); Glucose 88 mg/dL (74-106); Magnesium 1.5 mg/dL (1.6-2.6); Osmolality,Calculated 289 (275-295); Phosphorous 3.2 mg/dL (2.4-5.1); Potassium 3.2 mMol/L (3.4-5.1); Sodium 144 mMol/L (136-145); Total Protein 5.2 gm/dL (5.7-8.2); eGFR 51 See Note
[2025-05-27] MEDS: cefTRIAXone/D5w 1gm IV premix 1 GM/50 ML BAG IV (08:24)
[2025-05-27] MEDS: AMIODARONE HCL 200 MG TABLET 100 MG PO (08:24)
[2025-05-27] MEDS: PANTOPRAZOLE 40 MG TABLET PO (08:25)
[2025-05-27] MEDS: SODIUM BICARBONATE 650 MG TABLET PO (08:25)
[2025-05-27] MEDS: MAGNESIUM OXIDE 400 MG TABLET PO (08:25)
[2025-05-27] MEDS: ACETAMINOPHEN 325 MG TABLET 650 MG PO (08:44)
--- NOTE | 2025-05-27 09:20 | CHAP ---
Patient was with family member who helped with translation. I had prayer with him for his upcoming procedure.
--- NOTE | 2025-05-27 09:34 | ESPR_ITS ---
<Statement entered by Alejandra Pathak MD - 06/02/25 14:19> I reviewed above note and agree with findings and plans. I have also personally examined the patient with medicine team and went over assessment and plan with medical team including unpaid intern and resident physician. Documentation for date of: 05/27/25 Senior resident attestation: Patient evaluated and examined at the bedside, plan of care discussed with rest of the team including my attending physician, except as noted. Patient is a 79 year old male with past medical history of HTN, HLD, Hypothyrodism, pre-diabetes, s/p pacemaker, CKD Stage 3a, GERD, and history of renal cyst. Chief complaint nausea vomiting abdominal pain, had more than 7 episodes of diarrhea. Denied melena or hematochezia. CT abdomen pelvis on 05/23/2025 was concerning for colitis, educational diagnostician was consulted, Dr. Nuñez, currently the patient is treated with IV antibiotics Rocephin and metronidazole, negative C. difficile stool study, pending stool culture sensitivity. Renal ultrasound showed bilateral renal parenchymal scar formation and concern for solid mass anterior to the right kidney, of note patient had a prior CT abdomen pelvis just 2 days ago which did not report any mass anterior to the kidney. Given history of CKD, will hold off on repeating contrast study, will advise patient to get a repeat CT scan with IV contrast on outpatient basis. The patient is pending a colonoscopy for evaluation of colitis. Currently on GoLytely prep. Quresh PGY3 Subjective Subjective Interval history: Patient was seen and examined at bedside. A.m. vitals and labs reviewed. Patient currently taking Golytely prep for colonoscopy scheduled for today. Multiple diarrhea due to the Golytely prep. Patient reports lower central abdominal pain. Slight frequency and urgency. Patient's OBED improving with Cr 1.4. Urine culture no significant growth, Stool WBC was negative, and C.diff was negative. Stool culture negative, blood culture negative growth after 48hrs Exam Vital Signs Temp Pulse Resp BP Pulse Ox O2 Del Method 97.6 F 71 16 97/71 96 Room Air 05/27/25 07:58 05/27/25 08:24 05/27/25 07:58 05/27/25 08:24 05/27/25 07:58 05/27/25 07:58 Narrative Exam General: No acute distress, well nourished Eye: PERRL, EOMI, normal conjunctiva, no scleral icterus HENT: Normocephalic, atraumatic, hearing intact to conversation at normal volume, moist oral mucosa Neck: Supple, non-tender, no JVD, no lymphadenopathy Lungs: Non-labored respirations, symmetric chest rise, Clear to auscultate bilaterally Heart: Peripheral pulses intact bilaterally Abdomen: Soft, non-distended, diffuse abdominal pain Musculoskeletal: Normal range of motion and strength Skin: Skin is warm, dry, no rashes or lesions. Psychiatric: Cooperative, appropriate mood and affect Neuro: Cranial nerves II-XII grossly intact. Strength 5/5 throughout. Sensations intact to light touch. Objective Labs 05/27/25 04:42 05/27/25 04:42 Labs: Laboratory Results - last 24 hr 05/26/25 05/27/25 05:05 04:42 WBC 6.3 RBC 3.64 L Hgb 10.7 L Hct 31.3 L MCV 86 MCH 29.4 MCHC 34.2 RDW Std Deviation 43.6 Plt Count 135 L Neut % (Auto) 58 Lymph % (Auto) 29 [place] % (Auto) 12 Eos % (Auto) 1 Baso % (Auto) 0 Neut # (Auto) 3.6 Lymph # (Auto) 1.9 [place] # (Auto) 0.8 Eos # (Auto) 0.0 Baso # (Auto) 0.0 Immature Gran # (Auto) 0.04 H Absolute Nucleated RBC 0.00 Immature Gran % 1 H Nucleated RBC % 0 Sodium 144 Potassium 3.2 L Chloride 109 H Carbon Dioxide 25.7 Anion Gap 9 BUN 22 Creatinine 1.4 H Estim Creat Clear Calc 39.9 L eGFR 51 L BUN/Creatinine Ratio 16 Glucose 88 Calculated Osmolality 289 Calcium 8.3 Corrected Calcium 9.2 Phosphorus 2.9 3.2 Magnesium 1.5 L 1.5 L Total Bilirubin 0.3 AST 31 ALT 16 Alkaline Phosphatase 62 Total Protein 5.2 L Albumin 2.9 L Globulin 2.3 Albumin/Globulin Ratio 1.3 Quality Measures Quality Measures none Advance care planning discussed with:: patient and child Assessment & Plan Assessment Current Active Medications: Generic Name Dose Route Start Last Admin Trade Name Freq PRN Reason Stop Dose Admin Acetaminophen 650 mg 05/25/25 00:45 05/27/25 08:44 Acetaminophen 325 Mg Tablet PO 06/24/25 00:44 650 mg Q6H PRN Administration PAIN SCALE 1-3 (mild Hydrocodone Bitart/Acetaminophen 1 tab 05/25/25 15:09 05/26/25 21:43 Hydrocodone/Apap 5/325 Tablet PO 05/30/25 15:08 1 tab Q8HR PRN Administration PAIN SCALE 4-10(Mod-Sev Amiodarone HCl 100 mg 05/26/25 09:00 05/27/25 08:24 Amiodarone Hcl 200 Mg Tablet PO 06/25/25 08:59 100 mg QDAY ERIKA Administration Dextrose 25 ml 05/25/25 00:50 Dextrose 50%-Water Inj 50 Ml Syringe IV 06/24/25 00:49 Q15MIN PRN BG 50-70 responsive npo pt Dextrose 50 ml 05/25/25 00:50 Dextrose 50%-Water Inj 50 Ml Syringe IV 06/24/25 00:49 Q15MIN PRN BG <50 OR BG <70 & pt unresponsive Glucagon 1 mg 05/25/25 00:50 Glucagon Inj 1 Mg Vial IM Q15MIN PRN BG <70, and no IV access Heparin Sodium (Porcine) 5,000 unit 05/25/25 09:00 05/27/25 08:26 Heparin Sod Inj 5000 Unit/Ml Vial SC 06/08/25 08:59 Not Given Q12HR ERIKA Ceftriaxone Sodium/Dextrose 1 gm in 50 mls @ 100 mls/hr 05/25/25 00:55 05/27/25 08:24 Rocephin/D5w 1gm Iv Premix IV 06/01/25 00:54 50 mls/hr QDAY ERIKA Administration Metronidazole 500 mg in 100 mls @ 200 mls/hr 05/25/25 06:30 05/27/25 05:45 Flagyl 500 Mg Iv IV 06/01/25 06:29 200 mls/hr Q8HR ERIKA Administration Levothyroxine Sodium 50 mcg 05/25/25 06:00 05/27/25 05:45 Levothyroxine Sodium 25 Mcg Tablet PO 06/24/25 05:59 50 mcg ACBR ERIKA Administration Loperamide HCl 2 mg 05/25/25 15:06 05/25/25 15:16 Loperamide 2 Mg Capsule PO 06/01/25 15:05 2 mg Q6HR PRN Administration DIARRHEA Ondansetron HCl 4 mg 05/25/25 00:45 Ondansetron Inj 2 Mg/Ml Inj 2 Ml IVP 06/24/25 00:44 Q6H PRN NAUSEA OR VOMITING Protocol Pantoprazole Sodium 40 mg 05/25/25 09:00 05/27/25 08:25 Pantoprazole 40 Mg Tablet PO 06/24/25 08:59 40 mg QDAY ERIKA Administration Protocol Sodium Bicarbonate 650 mg 05/25/25 09:00 05/27/25 08:25 Sodium Bicarbonate 650 Mg Tablet PO 06/24/25 08:59 650 mg QDAY ERIKA Administration Plan Luis Fernando Rubio is a 79-year-old M with a PMH of hypertension, hyperlipidemia, hypothyroidism, prediabetes, pacemaker for an unspecified cardiac arrhythmia for which the patient is on amiodarone, and CKD, and a renal cyst who presents today with worsening abdominal pain, nausea, and vomiting for 3 days. Patient was admitted for the work-up and management of possible colitis, pyelonephritis and OBED on CKD. #Colitis CTAP showed a diffuse nonspecific colitis pattern that could possibly signify ulcerative colitis or Crohn's disease. CBC showed elevated WBC at 13.7 and CMP showed significantly elevated procalcitonin at 43.37. Patient is s/p po Levaquin given yesterday, and ciprofloxacin and Flagyl given in the ED Endorsing watery diarrhea -Started IV Rocephin 1 gm qD -Started IV Flagyl 500 mg q8HR -calprotectin Pending -Ordered C.diff PCR, and Giardia antigen -Ordered daily weight monitoring and strict I's & O's -Placed on NPO -Blood culture negative for 48hrs, Urine culture no significant growth, Stool WBC was negative, and C.diff was negative. -Colonoscopy pending today -GI has been consulted, awaiting recommendations #Pyelonephritis #UTI Patient's UA was turbid and showed 1+ protein, high RBC 6, high WBC 6, but was negative for nitrites and LE. Right costovertebral tenderness was present on physical exam Patient is s/p po Levaquin given yesterday, and ciprofloxacin and Flagyl given in the ED Renal US (05/25/2025): Moderate bilateral renal parenchymal scar formation, Recommend CT scan abdomen and pelvis follow-up to exclude solid mass anterior to the right kidney -Started IV Rocephin 1 gm qD -Started IV Flagyl 500 mg q8HR -Ordered bladder scan #OBED #CKD Upon admission, CMP showed a high BUN of 39, a high creatinine of 3.1 (worsening from 2.2 yesterday), and low eGFR at 20. -Started 1 L IV LR maintenance fluid -Ordered random urine total protein, electrolytes, and creatinine -OBED improving with Cr 1.4. #Acidosis of unknown etiology CMP showed a slightly elevated lactic acid of 2.4 Unclear at this time whether this is 2/2 lactic acidosis or RTA on CKD in the setting of UTI. -Restarted home medication of po sodium bicarbonate 650 mg qD -Started 1 L IV LR maintenance fluid (chronic) #Unspecified cardiac arrhythmia #Pacemaker -Restarted home medication of po amiodarone 100 mg qD #Possible hypothyroidism -Restarted home medication of po Levothyroxine 50 mcg ACBR #Possible GERD -Restarted home medication of po Protonix 40 mg qD #Possible T2DM Patient had a slightly elevated glucose of 133 in the likely setting of fasting. -Ordered hemoglobin A1c -Started insulin sliding scale Hospital Management: Disposition: undergoing workup and management of possible colitis, pyelonephritis, and OBED Fluids: 1 L IV LR maintenance fluids Diet: renal Lines: none DVT Prophylaxis: heparin gtt Rich: not in place CODE STATUS: Full Code Assessment and plan discussed with my attending physician Dr. Pathak and Dr. Quinones (PGY-3) Dr. Osman (PGY-1)- Internal medicine resident
[2025-05-27] MEDS: ONDANSETRON INJ 2 MG/ML INJ 2 ML 4 MG IVP (12:32)
--- NOTE | 2025-05-27 17:45 | SUR.OPER ---
Arrived to recovery bay 1. Resting with eyes closed but responding to questions and commands appropriately. No c/o pain or discomfort.
[2025-05-27] MEDS: GENTAMICIN/NS 80 MG IVPB 80 MG in PRE-MIXED 1 BAG 50 MG IV (17:46)
[2025-05-27] MEDS: HEPARIN SOD INJ 5000 UNIT/ML VIAL SC (21:58)
[2025-05-27] MEDS: LOPERAMIDE 2 MG CAPSULE PO (22:43)
[2025-05-28] VITALS: BP 136/84; PULSE 73; PULSE 83; RESP 17; TEMP 36.6; O2SAT 95
[2025-05-28 04:00] VITALS: BP 144/93; PULSE 79; PULSE 88; RESP 16; TEMP 36.6; O2SAT 96
[2025-05-28] MEDS: metroNIDAZOLE/NS 500 MG IVPB 500 MG/100 ML BAG 200 MG IV (05:36)
[2025-05-28] MEDS: LEVOTHYROXINE SODIUM 25 MCG TABLET 50 MCG PO (05:36)
[2025-05-28 06:35] LABS: Basophils # (Auto) 0.0 Thou/mm3 (0.0-0.2); Basophils % (Auto) 0 % (0-2.5); Eosinophils # (Auto) 0.1 Thou/mm3 (0.0-0.5); Eosinophils % (Auto) 1 % (0-10); Hematocrit 31.5 % (41.0-53.0); Hemoglobin 10.6 g/dL (13.5-16.0); Immature Granulocytes Auto 0.03 Thou/mm3 (0.00-0.00); Lymphocytes # (Auto) 2.4 Thou/mm3 (1.0-4.8); Lymphocytes % (Auto) 36 % (10-50); Mean Corpuscular HGB Conc 33.7 g/dl (31.0-37.0); Mean Corpuscular Hemoglobin 29.6 pg (25.0-35.0); Mean Corpuscular Volume 88 fL (80-100); Monocytes # (Auto) 0.8 Thou/mm3 (0.0-0.8); Monocytes % (Auto) 13 % (0-12); Neutrophils # (Auto) 3.4 Thou/mm3 (1.8-7.7); Neutrophils % (Auto) 51 % (37-80); Nucleated Red Blood Cell # 0.00 Thou/mm3 (0.00-0.00); Nucleated Red Blood Cell % 0 /100 WBC (0); Platelet Count 137 Thou/mm3 (140-440); RDW Standard Deviation 44.8 fL (35.1-43.9); Red Blood Count 3.58 Miln/mm3 (4.50-5.90); White Blood Count 6.7 Thou/mm3 (3.8-10.6)
[2025-05-28 07:06] LABS: Alanine Aminotransferase 11 U/L (10-49); Albumin, Serum 2.7 gm/dL (3.4-4.8); Albumin/Globulin Ratio 1.2 (1.2-2.2); Alkaline Phosphatase 59 U/L (46-116); Anion Gap 12 (7-16); Aspartate Amino Transferase 29 U/L (0-34); BUN/Creatinine Ratio 14 Ratio (12-20); Bilirubin,Total 0.3 mg/dL (0.3-1.2); Blood Urea Nitrogen 17 mg/dL (9-23); Calcium 7.6 mg/dL (8.3-10.6); Calcium (Corrected) 8.6 mg/dL (8.5-10.1); Carbon Dioxide 23.0 mMol/L (20.0-31.0); Chloride 110 mMol/L (98-107); Creatinine (Component) 1.2 mg/dL (0.6-1.3); Estimated Creatinine Clearance 45.8 mL/min (>60); Globulin 2.2 gm/dL (2.3-3.5); Glucose 64 mg/dL (74-106); Magnesium 1.4 mg/dL (1.6-2.6); Osmolality,Calculated 288 (275-295); Phosphorous 3.4 mg/dL (2.4-5.1); Potassium 3.6 mMol/L (3.4-5.1); Sodium 145 mMol/L (136-145); Total Protein 4.9 gm/dL (5.7-8.2); eGFR > 60 See Note
[2025-05-28 08:00] VITALS: BP 126/82; PULSE 79; RESP 18; TEMP 36.1; O2SAT 96
[2025-05-28] MEDS: cefTRIAXone/D5w 1gm IV premix 1 GM/50 ML BAG IV (08:25)
[2025-05-28 08:26] VITALS: BP 144/93; PULSE 88
[2025-05-28] MEDS: HEPARIN SOD INJ 5000 UNIT/ML VIAL SC (08:26)
[2025-05-28] MEDS: ASPIRIN EC 81 MG TABEC PO (08:26)
[2025-05-28] MEDS: PANTOPRAZOLE 40 MG TABLET PO (08:26)
[2025-05-28] MEDS: AMIODARONE HCL 200 MG TABLET 100 MG PO (08:26)
[2025-05-28] MEDS: SODIUM BICARBONATE 650 MG TABLET PO (08:26)
[2025-05-28] MEDS: MAGNESIUM OXIDE 400 MG TABLET PO (08:27)
[2025-05-28] MEDS: ACETAMINOPHEN 325 MG TABLET 650 MG PO (10:26)
--- NOTE | 2025-05-28 11:37 | PC.SS ---
OTORHINOLARYNGOLOGIST spoke to pt. and confirmed D/C plan. Pt. stated son will provide transportation home. OTORHINOLARYNGOLOGIST provided pt. with community resource list. No needs or questions from pt.
--- NOTE | 2025-05-28 11:45 | ESDS_ITS ---
<Statement entered by Alejandra Pathak MD - 06/02/25 14:20> I reviewed above note and agree with findings and plans. I have also personally examined the patient with medicine team and went over assessment and plan with medical team including audit intern and resident physician. Planned Discharge Date 05/28/25 DS: Providers Provider Date of admission: 05/25/25 01:12 Primary care physician: Trevor Jones PA-C Admitting Provider: Gee Meza DO Attending Provider on Admission: Alejandra Pathak MD Consults: 05/24/25 21:46 Consult to Gastroenterology Stat Comment: colitis Consulting Provider: Pankaj Nuñez Attending Provider on DC: RESIDENT Mare Discharging Provider: RESIDENT Mare DS: Diagnosis Problem List Completed Was Problem List Reviewed/Reconciled?: Yes Hospital Course Hospital Course Hospital course: Summary: Patient is a 79-year-old male with a PMH of hypertension, hyperlipidemia, hypothyroidism, prediabetes, pacemaker for an unspecified cardiac arrhythmia for which the patient is on amiodarone, and CKD, and a renal cyst who presents today with worsening abdominal pain, nausea, and vomiting for 3 days. Patient was admitted for the work-up and management of colitis, pyelonephritis and OBED on CKD. ED course: CBC showed high WBC 13.7 with neutrophilic predominance.Coagulation panel showed slightly high PT 13.2 and slightly high APTT 38.8. CMP showed high BUN 39, high creatinine 3.1, low eGFR 20, high glucose (133), slightly high lactic acid 2.4, slightly high BNP 110, high procalcitonin 43.37. UA was turbid and showed 1+ protein, high RBC 6, high WBC 6, but was negative for nitrites and LE. Patient was given 2L of IV LR boluses, IV Flagyl 500 mg x1, and IV ciprofloxacin [address] abdomen/pelvis (05/23/2025) showed a diffuse nonspecific colitis pattern that could possibly signify ulcerative colitis or Crohn's disease. Hospital Course: Upon admission, CTAP showed a diffuse nonspecific colitis pattern that could possibly signify ulcerative colitis or Crohn's disease. CBC showed elevated WBC at 13.7 and CMP showed significantly elevated procalcitonin at 43.37. Blood culture negative for 48hrs, urine culture no significant growth, Stool WBC was negative, and C.diff was negative. Patient was evaluated for pyelonephritis. Patient's UA was turbid and showed 1+ protein, high RBC 6, high WBC 6, but was negative for nitrites and LE. Right costovertebral tenderness was present on physical exam. Renal US (05/25/2025) showed moderate bilateral renal parenchymal scar formation, recommended CT scan abdomen and pelvis follow-up to exclude solid mass anterior to the right kidney. Patient started Patient started IV Rocephin 1 gm qD and IV Flagyl 500 mg q8HR for colitis and pyelonephritis. For OBED on CKD, patient?s CMP showed a high BUN of 39, a high creatinine of 3.1, and low eGFR at 20 upon admission. Patient started 1 L IV LR maintenance fluid. Creatinine later improved to 1.4. Colonoscopy (05/27/2025) showed hemorrhoids in perianal, Erythematous mucosa in ascending colon, sigmoid colon, in rectum, and Shallow ulceration in descending colon, sigmoid colon suggestive of ischemic colitis. Patient was instructed to follow outpatient cardiology for cardiac stress test, bilateral carotid Ultrasonography, peripheral doppler US to r/o widespread atherosclerotic CVD. Patient was given pantoprazole for ulcers and continue antibiotic Ciprofloxacin for 2 more days to finish treatment of complicated Urinary tract infection. #Colitis #Pyelonephritis #UTI #OBED #CKD #Acidosis of unknown etiology #Unspecified cardiac arrhythmia #Pacemaker #Possible hypothyroidism #Possible GERD #Possible T2DM Instructions: -New medication of Pantoprazole for Ulcers and continue antibiotic Ciprofloxacin for 2 more days to finish treatment of complicated Urinary tract infection. -Continue all medication as prescribed , -Please outpatient for coronary artery disease with chain mortiser operator, for cardiac stress test , carotid doppler, due to colonoscopy finding of Ischemic colitis. -Right renal mass noted on CT imgaes, please follow up with PCP, for repeat CT w/ contrast after kidney function improves. -Please follow up with your primary care provider within one week of discharge -If your symptoms worsen,please seek immediate medical attention and return to your nearest emergency room -If you do not have a primary care provider, you may follow up at the [facility] at [facility] [address], [place] [address], Safe to discharge to Home Assessment and plan discussed with my attending physician Dr. Pathak and Dr. Quinones (PGY-3) Dr. Osman (PGY-1)- Internal medicine resident Time Spent with Patient Time attestation: Total time spent providing and/or coordinating discharge services: Time spent: Greater than 30 minutes Exam Vital Signs Temp Pulse Resp BP Pulse Ox O2 Del Method O2 Flow Rate 97.0 F 88 18 144/93 H 96 Room Air 3 05/28/25 08:00 05/28/25 08:26 05/28/25 08:00 05/28/25 08:26 05/28/25 08:00 05/28/25 08:00 05/27/25 17:37 Narrative Exam General: No acute distress, well nourished Eye: PERRL, EOMI, normal conjunctiva, no scleral icterus HENT: Normocephalic, atraumatic, hearing intact to conversation at normal volume, moist oral mucosa Neck: Supple, non-tender, no JVD, no lymphadenopathy Lungs: Non-labored respirations, symmetric chest rise, Clear to auscultate bilaterally Heart: Peripheral pulses intact bilaterally Abdomen: Soft, non-distended, diffuse abdominal pain Musculoskeletal: Normal range of motion and strength Skin: Skin is warm, dry, no rashes or lesions. Psychiatric: Cooperative, appropriate mood and affect Neuro: Cranial nerves II-XII grossly intact. Strength 5/5 throughout. Sensations intact to light touch. Discharge Plan Plan Patient Disposition: HOME (Self Care) Patient condition on transfer: Stable Care Plan Goals: Instructions: -New medication of Pantoprazole for Ulcers and continue antibiotic Ciprofloxacin for 2 more days to finish treatment of complicated Urinary tract infection. -Continue all medication as prescribed , -Please outpatient for coronary artery disease with chain mortiser operator, for cardiac stress test , carotid doppler, due to colonoscopy finding of Ischemic colitis. -Right renal mass noted on CT imgaes, please follow up with PCP, for repeat CT w/ contrast after kidney function improves. -Please follow up with your primary care provider within one week of discharge -If your symptoms worsen,please seek immediate medical attention and return to your nearest emergency room -If you do not have a primary care provider, you may follow up at the [facility] at [address], [place] [address], Prescriptions/Referrals Prescriptions/Med Rec: New levothyroxine 25 mcg Tablet 50 mcg PO ACBR 30 Days Qty: 30 0RF pantoprazole 40 mg Tablet,Delayed Release (Dr/Ec) 40 mg PO QDAY 30 Days Qty: 30 0RF amiodarone 100 mg tablet 100 mg PO QDAY 30 Days Qty: 30 0RF ciprofloxacin HCl 500 mg tablet 500 mg PO BID Qty: 4 0RF Continued verapamil 180 mg capsule,ext rel. pellets 24 hr 180 mg PO QAM aspirin 81 mg tablet,delayed release (DR/EC) 81 mg PO QDAY Qty: 90 0RF ferrous gluconate 324 mg (37.5 mg iron) tablet 324 mg PO QDAY Qty: 90 0RF sodium bicarbonate 650 mg tablet 650 mg PO QDAY Qty: 90 0RF ondansetron 4 mg tablet,disintegrating 4 mg PO Q8H 4 Days Qty: 12 0RF Held losartan 100 mg tablet 100 mg PO QDAY Qty: 90 0RF Hold Instructions: Resume on 06/06/25. Discontinued levofloxacin 500 mg tablet 500 mg PO Q24H MDD start the nedication tomorrow 10 Days Qty: 10 0RF levothyroxine 88 mcg tablet 88 mcg PO ACBR Patient Comments: TAKE 1 TABLET BY MOUTH ONCE DAILY IN THE MORNING ON AN EMPTY STOMACH amiodarone 200 mg tablet 100 mg PO QDAY omeprazole 20 mg capsule,delayed release(DR/EC) 20 mg PO QDAY Rx Instructions: take 30 minutes before breakfast Referrals: Deja Geller MD [Physician] - Trevor Jones PA-C [Primary Care Provider] - Patient/Caregiver Discharge Instructions Education Materials: Colonoscopy, Understanding Colitis Print Language: Jordanian Stand Alone Forms: Jessica Award Info., Patient Portal Info Letter Discharge Order Discharge Orders: Discharge (Routine); Ordered 05/28/25 Ordered By: Hemanth Quinones Quality Discharge Quality Measures VTE prophylaxis
[2025-05-28 12:00] VITALS: BP 126/82; PULSE 77; RESP 17; TEMP 36.3; O2SAT 96
--- NOTE | 2025-05-28 23:40 | ESPR_ITS ---
Documentation for date of: 05/28/25 Subjective Subjective Interval history: Late entry for the note hemoglobin hematocrit 10.6 and 31.5 Case discussed with internal medicine team okay to discharge patient Exam Vital Signs Temp Pulse Resp BP Pulse Ox O2 Del Method O2 Flow Rate 97.4 F 77 17 126/82 96 Room Air 3 05/28/25 12:00 05/28/25 12:00 05/28/25 12:00 05/28/25 12:00 05/28/25 12:00 05/28/25 12:00 05/27/25 17:37 Objective Labs 05/28/25 05:34 05/28/25 05:34 Labs: Laboratory Results - last 24 hr 05/28/25 05:34 WBC 6.7 RBC 3.58 L Hgb 10.6 L Hct 31.5 L MCV 88 MCH 29.6 MCHC 33.7 RDW Std Deviation 44.8 H Plt Count 137 L Neut % (Auto) 51 Lymph % (Auto) 36 [place] % (Auto) 13 H Eos % (Auto) 1 Baso % (Auto) 0 Neut # (Auto) 3.4 Lymph # (Auto) 2.4 [place] # (Auto) 0.8 Eos # (Auto) 0.1 Baso # (Auto) 0.0 Immature Gran # (Auto) 0.03 H Absolute Nucleated RBC 0.00 Immature Gran % 0 Nucleated RBC % 0 Sodium 145 Potassium 3.6 Chloride 110 H Carbon Dioxide 23.0 Anion Gap 12 BUN 17 Creatinine 1.2 Estim Creat Clear Calc 45.8 L eGFR > 60 BUN/Creatinine Ratio 14 Glucose 64 L Calculated Osmolality 288 Calcium 7.6 L Corrected Calcium 8.6 Phosphorus 3.4 Magnesium 1.4 L Total Bilirubin 0.3 AST 29 ALT 11 Alkaline Phosphatase 59 Total Protein 4.9 L Albumin 2.7 L Globulin 2.2 L Albumin/Globulin Ratio 1.2 Impressions Impression: 2. Abnormal CT scan of the abdomen pelvis showing erythema left colon biopsies taken are pending no clinical evidence or endoscopic evidence Of inflammatory bowel disease Assessment & Plan A&P Narrative # Inflammatory versus infectious enterocolitis C. difficile is negative Suggestions CRP Waiting for fecal calprotectin Ordered ANCA antibody Clear liquid diet GoLytely prep consent obtained for fiberoptic colonoscopy with possible biopsy possible therapeutic intervention under intravenous moderate sedation Other medical problems include CKD stage III Permanent cardiac pacemaker Hypothyroidism Essential hypertension Thank you very much for the opportunity to participate in care of this patient Time Spent With Patient Time: Total time spent is greater than 50% in coordination of care (as documented) at patient's floor/unit and/or counseling patient:
[2025-06-02 08:05] LABS: Calprotectin, Stool* 3280 mcg/g
[2025-06-02 08:12] LABS: ANCA Screen NEGATIVE (NEGATIVE); Myeloperoxidase Ab <1.0 AI (<1.0); Proteinase-3 Ab <1.0 AI (<1.0)
== END 2025-05-28 13:07 | disposition home or self-care (01) | DRG 394 ==
LOC: SERX 23:53 → SERHOLD 05-25 01:15 → S3NX 05-25 04:49
PROVIDERS: Nurse Practitioner Family; Specialist; Admitting Provider Student in an Organized Health Care Education/Training Program; Emergency Provider Emergency Medicine; PCP Physician Assistant; Visit Provider Internal Medicine
PROC: 0DJD8ZZ Inspection of Lower Intestinal Tract, Via Natural or Artificial Opening Endoscopic (ICD-10-PCS; CPT 45378; principal; 2025-05-27 16:30)
DX: K55.9 Vascular disorder of intestine, unspecified (principal); E87.20 Acidosis, unspecified; N12 Tubulo-interstitial nephritis, not specified as acute or chronic; K63.3 Ulcer of intestine; N17.9 Acute kidney failure, unspecified; R73.03 Prediabetes; E78.5 Hyperlipidemia, unspecified; I12.9 Hypertensive chronic kidney disease with stage 1 through stage 4 chronic kidney disease, or unspecified chronic kidney disease; E03.9 Hypothyroidism, unspecified; I45.10 Unspecified right bundle-branch block; N18.31 Chronic kidney disease, stage 3a; K52.9 Noninfective gastroenteritis and colitis, unspecified; N18.30 Chronic kidney disease, stage 3 unspecified; I25.10 Atherosclerotic heart disease of native coronary artery without angina pectoris; N40.0 Benign prostatic hyperplasia without lower urinary tract symptoms; Z95.0 Presence of cardiac pacemaker; N41.9 Inflammatory disease of prostate, unspecified; N28.1 Cyst of kidney, acquired; N28.89 Other specified disorders of kidney and ureter; K21.9 Gastro-esophageal reflux disease without esophagitis; K64.9 Unspecified hemorrhoids; Z79.890 Hormone replacement therapy
CPT/HCPCS: 36415; 71045; 76770; 80053; 81001; 82436; 82570; 83036; 83605; 83615; 83690; 83735; 83880; 83993; 84100; 84133; 84145; 84156; 84300; 84484; 85025; 85610; 85730; 86021; 86036; 86140; 87015; 87040; 87045; 87046; 87086; 87205; 87329; 87493; 87899; 93225; 96365; 96366; J0696; J0744; J1200; J1580; J1644; J2250; J2405; J3010; J3490; J7120; A9270; J1836